=== PATIENT | female | born 1985 | race Caucasian/White ===

== ENCOUNTER 2017-10-15 22:43 | Emergency (ER) | payer MEDICAID ==
[~2017-10-15] VITALS: Ht 149.9 cm; Wt 63.5 kg
[2017-10-16] MEDS ORDERED: IBUP400 PO (00:25)
== END 2017-10-16 00:34 | disposition home or self-care (01) ==
LOC: ER 22:43
DX: M25.532 Pain in left wrist (principal); F17.210 Nicotine dependence, cigarettes, uncomplicated
CPT/HCPCS: 29125; 73110; 99283

== ENCOUNTER 2018-05-30 13:10 | Emergency (ER) | payer OTHER ==
[~2018-05-30] VITALS: Ht 149.9 cm; Wt 63.5 kg
[~2018-05-30 13:10] MED LIST: IBUP400 PO
[2018-05-30] MEDS ORDERED: Cleocin HCl300 MG PO (14:19)
== END 2018-05-30 14:24 | disposition home or self-care (01) ==
LOC: ER 13:10
DX: J02.9 Acute pharyngitis, unspecified (principal); L03.113 Cellulitis of right upper limb; L23.7 Allergic contact dermatitis due to plants, except food; R03.0 Elevated blood-pressure reading, without diagnosis of hypertension; F17.210 Nicotine dependence, cigarettes, uncomplicated
CPT/HCPCS: 99282

== ENCOUNTER 2021-03-03 21:30 | Inpatient (IN) | payer OTHER ==
[~2021-03-03] VITALS: Ht 149.9 cm; Wt 91.9 kg
[~2021-03-03 21:30] MED LIST changes: +Cleocin HCl300 MG PO
[2021-03-03 23:42] LABS: BASOPHILS ABSOLUTE AUTO 0.05 K/mm3 (0.00-0.23); BASOPHILS PERCENT AUTO 0 % (0-2); EOSINOPHILS ABSOLUTE AUTO 0.06 K/mm3 (0.00-0.68); EOSINOPHILS PERCENT AUTO 1 % (0-6); Hematocrit 44.1 % (33.0-51.0); Hemoglobin 14.6 g/dL (11.5-16.0); IMMATURE GRAN ABSOLUTE AUTO 0.05 K/mm3 (0.00-0.10); IMMATURE GRAN PERCENT AUTO 0 % (0-1); LYMPHOCYTES ABSOLUTE AUTO 1.46 K/mm3 (0.84-5.20); LYMPHOCYTES PERCENT AUTO 12 % (21-46); MONOCYTES ABSOLUTE AUTO 1.02 K/mm3 (0.16-1.47); MONOCYTES PERCENT AUTO 8 % (4-13); Mean Corpuscular HGB 29.1 pg (26.0-34.0); Mean Corpuscular HGB Conc 33.1 g/dL (31.5-36.5); Mean Corpuscular Volume 88 fL (80-100); Mean Platelet Volume 8.9 fL (9.1-12.4); NEUTROPHILS ABSOLUTE AUTO 9.94 K/mm3 (1.96-9.15); NEUTROPHILS PERCENT AUTO 79 % (41-73); Platelet Count 359 K/mm3 (150-400); RDW Coefficient Variation 13.4 % (11.7-14.2); RDW Standard Deviation 43.4 fL (35.1-46.3); Red Blood Cell Count 5.02 M/mm3 (3.80-5.20); White Blood Cell Count 12.58 K/mm3 (4.00-11.30)
[2021-03-04 00:05] LABS: Alanine Aminotransfer (ALT/SGP 45 U/L (12-78); Albumin, Blood 2.4 g/dL (3.4-5.0); Albumin/Globulin Ratio 0.5 (0.8-1.8); Alk Phos 90 U/L (50-136); Anion Gap 4 mmol/L (6-16); Aspartate Aminotrans (AST/SGOT 32 U/L (12-37); Bilirubin, Total 0.7 mg/dL (0.1-1.0); Blood Urea Nitrogen 13 mg/dL (8-24); Bun/Creatinine Ratio 17.1 (12.0-20.0); CO2, Blood 27 mmol/L (21-32); Calcium, Blood 8.4 mg/dL (8.5-10.1); Chloride, Blood 105 mmol/L (98-108); Creatinine, Blood 0.76 mg/dL (0.40-1.00); Globulin, Blood 4.4 g/dL (2.2-4.0); Glomerular Filtration Rate >60 (60-); Glucose, Blood 116 mg/dL (70-99); Magnesium, Blood 2.2 mg/dL (1.6-2.4); Potassium, Blood 4.4 mmol/L (3.5-5.5); Sodium, Blood 136 mmol/L (136-145); Total Protein, Blood 6.8 g/dL (6.4-8.2)
[2021-03-04 00:26] LABS: Source, Urine Clean Catch
[2021-03-04 00:30] LABS: Bilirubin, Urine Neg (Neg); Blood, Urine 1+ (Neg); Glucose Qualitative, Urine Neg (Neg); Ketones, Urine Neg (Neg); Leukocyte Esterase, Urine Neg (Neg); Nitrite, Urine Neg (Neg); Protein, Urine 2+ (Neg); Urobilinogen, Urine NORM (Normal); pH, Urine 6.5 (5.0-8.0)
[2021-03-04 00:38] LABS: Appearance, Urine Clear (Clear); Bacteria Not Seen /hpf; Color, Urine Yellow (P-Yellow); Red Blood Cells, Urine 0-2 /hpf (0-2); Squamous Epithelial Cells Not Seen /hpf (Few); White Blood Cells, Urine Not Seen /hpf (0-5)
[2021-03-04 00:41] LABS: U Amphetamine Screen Not Detected; U Barbituate Screen Not Detected; U Benzodiazapine Screen Not Detected; U Buprenorphine Screen Not Detected; U Cannabinoids Screen Not Detected; U Cocaine Screen Not Detected; U Methadone Screen Not Detected; U Methamphetamine Screen DETECTED; U Opiates Screen Not Detected; U Oxycodone Screen Not Detected; U Phencyclidine Screen Not Detected; U Propoxyphene Screen Not Detected
[2021-03-04 00:54] LABS: Troponin I 0.041 ng/mL (0.000-0.040)
[2021-03-04 04:38] LABS: SARS-Cov-2 (COVID-19) PCR, MMC NEGATIVE (NEGATIVE)
--- NOTE | 2021-03-04 06:26 | NUR ---
PATIENT WAS A NEW ADMT FROM ED. PT ARRIVED TO UNIT IN A STABLE CONDITION. ORIENTED PT TO ROOM AND CALL LIGHT USE AND POC. PT VERBALIZED UNDERSTANDING. PT IS CURRENTLY ASLEEP LYING IN BED, RR EVEN AND UNLABORED. BED IN LOW POSITION AND CALL LIGHT WIITHIN REACH.
--- NOTE | 2021-03-04 11:16 | NUR ---
PT ALERT ORIENTED X 4,PT ASK TO LEAVE,RN EXPLAINED THE RISK AD BENEFITS OF LEAVING AMA,PT VERBALIZED UNDERSTANDING AND PT SIGN THE AMA FORM,RN NOTIFIED
[2021-03-04] MEDS ORDERED: LOSA25 PO (12:00)
[2021-03-04] MEDS ORDERED: METO25ER PO (12:01)
[2021-03-04] MEDS ORDERED: FURO20 PO (12:01)
[2021-03-04] MEDS ORDERED: XARELTO20 MG PO (12:01)
[2021-03-04] MEDS ORDERED: SPIR25 PO (12:02)
--- NOTE | 2021-03-04 12:23 | NUR ---
Echocardiogram completed.
== END 2021-03-04 12:37 | disposition left against medical advice (07) | DRG 871 ==
LOC: ER 21:30 → MEDS 03-04 03:28
PROVIDERS: Emergency Medicine; Physician Assistant; ADMIT Internal Medicine
DX: A41.9 Sepsis, unspecified organism (principal); J96.01 Acute respiratory failure with hypoxia; I21.A1 Myocardial infarction type 2; J18.9 Pneumonia, unspecified organism; I50.23 Acute on chronic systolic (congestive) heart failure; J91.8 Pleural effusion in other conditions classified elsewhere; I42.9 Cardiomyopathy, unspecified; Z20.822 Contact with and (suspected) exposure to COVID-19; F17.210 Nicotine dependence, cigarettes, uncomplicated; F41.9 Anxiety disorder, unspecified; E66.9 Obesity, unspecified; F15.10 Other stimulant abuse, uncomplicated; J45.909 Unspecified asthma, uncomplicated; Z68.33 Body mass index [BMI] 33.0-33.9, adult; Z98.51 Tubal ligation status; Z98.890 Other specified postprocedural states; Z88.8 Allergy status to other drugs, medicaments and biological substances
CPT/HCPCS: 36415; 71045; 74177; 80053; 81001; 83605; 83690; 83735; 83880; 84145; 84484; 85025; 85651; 86141; 87040; 93306; 94760; 96374; 96375; 99285-25; J0456; J0696; J1650; J1940; J2405; J3010; J3370; J7030; J7050; Q9957; Q9967; U0004

== ENCOUNTER 2021-05-12 18:17 | Emergency (ER) | payer OTHER ==
[~2021-05-12] VITALS: Ht 149.9 cm; Wt 72.6 kg
[~2021-05-12 18:17] MED LIST changes: +FURO20 PO; +LOSA25 PO; +METO25ER PO; +SPIR25 PO; +XARELTO20 MG PO
[2021-05-12 19:28] LABS: Alanine Aminotransfer (ALT/SGP 54 U/L (12-78); Albumin, Blood 3.1 g/dL (3.4-5.0); Albumin/Globulin Ratio 0.7 (0.8-1.8); Alk Phos 117 U/L (50-136); Anion Gap 7 mmol/L (6-16); Aspartate Aminotrans (AST/SGOT 34 U/L (12-37); Bilirubin, Total 1.1 mg/dL (0.1-1.0); Blood Urea Nitrogen 17 mg/dL (8-24); Bun/Creatinine Ratio 19.8 (12.0-20.0); CO2, Blood 26 mmol/L (21-32); Calcium, Blood 9.2 mg/dL (8.5-10.1); Chloride, Blood 105 mmol/L (98-108); Creatinine, Blood 0.86 mg/dL (0.40-1.00); Globulin, Blood 4.6 g/dL (2.2-4.0); Glomerular Filtration Rate >60 (60-); Glucose, Blood 107 mg/dL (70-99); Potassium, Blood 4.1 mmol/L (3.5-5.5); Sodium, Blood 138 mmol/L (136-145); Total Protein, Blood 7.7 g/dL (6.4-8.2)
[2021-05-12 20:59] LABS: BASOPHILS ABSOLUTE AUTO 0.07 K/mm3 (0.00-0.23); BASOPHILS PERCENT AUTO 1 % (0-2); EOSINOPHILS ABSOLUTE AUTO 0.18 K/mm3 (0.00-0.68); EOSINOPHILS PERCENT AUTO 2 % (0-6); Hematocrit 45.5 % (33.0-51.0); Hemoglobin 14.3 g/dL (11.5-16.0); IMMATURE GRAN ABSOLUTE AUTO 0.03 K/mm3 (0.00-0.10); IMMATURE GRAN PERCENT AUTO 0 % (0-1); LYMPHOCYTES ABSOLUTE AUTO 1.51 K/mm3 (0.84-5.20); LYMPHOCYTES PERCENT AUTO 18 % (21-46); MONOCYTES ABSOLUTE AUTO 0.41 K/mm3 (0.16-1.47); MONOCYTES PERCENT AUTO 5 % (4-13); Mean Corpuscular HGB 26.8 pg (26.0-34.0); Mean Corpuscular HGB Conc 31.4 g/dL (31.5-36.5); Mean Corpuscular Volume 85 fL (80-100); Mean Platelet Volume 8.9 fL (9.1-12.4); NEUTROPHILS ABSOLUTE AUTO 6.12 K/mm3 (1.96-9.15); NEUTROPHILS PERCENT AUTO 74 % (41-73); Platelet Count 345 K/mm3 (150-400); RDW Coefficient Variation 17.4 % (11.7-14.2); RDW Standard Deviation 53.8 fL (35.1-46.3); Red Blood Cell Count 5.33 M/mm3 (3.80-5.20); White Blood Cell Count 8.32 K/mm3 (4.00-11.30)
[2021-05-12] MEDS ORDERED: CEPH500 PO ×2 (21:39→21:40)
== END 2021-05-12 22:08 | disposition home or self-care (01) ==
LOC: ER 18:17
PROVIDERS: Physician Assistant
DX: L03.116 Cellulitis of left lower limb (principal); L03.115 Cellulitis of right lower limb; I50.9 Heart failure, unspecified; F17.210 Nicotine dependence, cigarettes, uncomplicated; Z88.8 Allergy status to other drugs, medicaments and biological substances; Z79.899 Other long term (current) drug therapy
CPT/HCPCS: 36415; 80053; 85025; 99283; A9270

== ENCOUNTER 2021-05-25 21:00 | Inpatient (IN) | payer OTHER ==
[~2021-05-25] VITALS: Ht 149.9 cm; Wt 86.4 kg
[~2021-05-25 21:00] MED LIST changes: +CEPH500 PO
[2021-05-25 21:34] LABS: BASOPHILS ABSOLUTE AUTO 0.04 K/mm3 (0.00-0.23); BASOPHILS PERCENT AUTO 1 % (0-2); EOSINOPHILS ABSOLUTE AUTO 0.11 K/mm3 (0.00-0.68); EOSINOPHILS PERCENT AUTO 2 % (0-6); Hematocrit 44.8 % (33.0-51.0); Hemoglobin 14.4 g/dL (11.5-16.0); IMMATURE GRAN ABSOLUTE AUTO 0.03 K/mm3 (0.00-0.10); IMMATURE GRAN PERCENT AUTO 0 % (0-1); LYMPHOCYTES ABSOLUTE AUTO 1.04 K/mm3 (0.84-5.20); LYMPHOCYTES PERCENT AUTO 14 % (21-46); MONOCYTES ABSOLUTE AUTO 0.54 K/mm3 (0.16-1.47); MONOCYTES PERCENT AUTO 7 % (4-13); Mean Corpuscular HGB 26.7 pg (26.0-34.0); Mean Corpuscular HGB Conc 32.1 g/dL (31.5-36.5); Mean Corpuscular Volume 83 fL (80-100); NEUTROPHILS PERCENT AUTO 76 % (41-73); NRBC ABSOLUTE 0.02 K/mm3 (0.00-0.02); NRBC Auto 0.3 /100 WBC (0.0-0.2); Platelet Count 371 K/mm3 (150-400); RDW Coefficient Variation 17.5 % (11.7-14.2); RDW Standard Deviation 52.7 fL (35.1-46.3); White Blood Cell Count 7.36 K/mm3 (4.00-11.30)
[2021-05-25 22:15] LABS: Alanine Aminotransfer (ALT/SGP 154 U/L (12-78); Albumin, Blood 2.9 g/dL (3.4-5.0); Albumin/Globulin Ratio 0.7 (0.8-1.8); Alk Phos 120 U/L (50-136); Anion Gap 7 mmol/L (6-16); Aspartate Aminotrans (AST/SGOT 178 U/L (12-37); Blood Urea Nitrogen 19 mg/dL (8-24); Bun/Creatinine Ratio 22.1 (12.0-20.0); CO2, Blood 30 mmol/L (21-32); Calcium, Blood 8.5 mg/dL (8.5-10.1); Chloride, Blood 98 mmol/L (98-108); Creatinine, Blood 0.86 mg/dL (0.40-1.00); Globulin, Blood 3.9 g/dL (2.2-4.0); Glomerular Filtration Rate >60 (60-); Glucose, Blood 94 mg/dL (70-99); Potassium, Blood 4.3 mmol/L (3.5-5.5); Sodium, Blood 135 mmol/L (136-145); Total Protein, Blood 6.8 g/dL (6.4-8.2); Troponin I <0.015 ng/mL (0.000-0.040)
[2021-05-25 22:50] LABS: Influenza A, PCR NEGATIVE (NEGATIVE); Influenza B, PCR NEGATIVE (NEGATIVE); Resp Syncytial Virus, PCR NEGATIVE (NEGATIVE); SARS-Cov-2 (COVID-19) PCR, MMC NEGATIVE (NEGATIVE)
[2021-05-26 00:02] LABS: Cholesterol 168 mg/dL (50-200); HDL Cholesterol 21 mg/dL (>39); LDL/HDL RATIO 6.5; Low Density Lipoprotein Chol 136 mg/dL (0-110); Triglycerides 57 mg/dL (30-140); Very Low Density Lipoprot Chol 11 mg/dL (6-28)
[2021-05-26 00:09] LABS: U Amphetamine Screen Not Detected; U Barbituate Screen Not Detected; U Benzodiazapine Screen Not Detected; U Buprenorphine Screen Not Detected; U Cannabinoids Screen Not Detected; U Cocaine Screen Not Detected; U Methadone Screen Not Detected; U Methamphetamine Screen Not Detected; U Opiates Screen Not Detected; U Oxycodone Screen Not Detected; U Phencyclidine Screen Not Detected; U Propoxyphene Screen Not Detected
[2021-05-26 02:03] LABS: International Normalized Ratio 1.46
[2021-05-26 04:00] LABS: Alanine Aminotransfer (ALT/SGP 167 U/L (12-78); Albumin/Globulin Ratio 0.7 (0.8-1.8); Alk Phos 125 U/L (50-136); Anion Gap 6 mmol/L (6-16); Aspartate Aminotrans (AST/SGOT 172 U/L (12-37); Bilirubin, Total 0.9 mg/dL (0.1-1.0); Blood Urea Nitrogen 24 mg/dL (8-24); Bun/Creatinine Ratio 24.3 (12.0-20.0); CO2, Blood 33 mmol/L (21-32); Calcium, Blood 8.4 mg/dL (8.5-10.1); Chloride, Blood 98 mmol/L (98-108); Creatinine, Blood 0.99 mg/dL (0.40-1.00); Globulin, Blood 4.5 g/dL (2.2-4.0); Glomerular Filtration Rate >60 (60-); Glucose, Blood 101 mg/dL (70-99); Potassium, Blood 3.3 mmol/L (3.5-5.5); Sodium, Blood 137 mmol/L (136-145); Total Protein, Blood 7.5 g/dL (6.4-8.2)
[2021-05-26 04:13] LABS: BASOPHILS ABSOLUTE AUTO 0.04 K/mm3 (0.00-0.23); BASOPHILS PERCENT AUTO 1 % (0-2); EOSINOPHILS ABSOLUTE AUTO 0.09 K/mm3 (0.00-0.68); EOSINOPHILS PERCENT AUTO 1 % (0-6); Hematocrit 47.6 % (33.0-51.0); Hemoglobin 15.3 g/dL (11.5-16.0); IMMATURE GRAN ABSOLUTE AUTO 0.04 K/mm3 (0.00-0.10); IMMATURE GRAN PERCENT AUTO 1 % (0-1); LYMPHOCYTES ABSOLUTE AUTO 1.12 K/mm3 (0.84-5.20); LYMPHOCYTES PERCENT AUTO 15 % (21-46); MONOCYTES PERCENT AUTO 8 % (4-13); Mean Corpuscular HGB 26.7 pg (26.0-34.0); Mean Corpuscular HGB Conc 32.1 g/dL (31.5-36.5); Mean Corpuscular Volume 83 fL (80-100); Mean Platelet Volume 9.3 fL (9.1-12.4); NEUTROPHILS ABSOLUTE AUTO 5.58 K/mm3 (1.96-9.15); NEUTROPHILS PERCENT AUTO 75 % (41-73); Platelet Count 390 K/mm3 (150-400); RDW Coefficient Variation 18.4 % (11.7-14.2); RDW Standard Deviation 52.7 fL (35.1-46.3); Red Blood Cell Count 5.73 M/mm3 (3.80-5.20); White Blood Cell Count 7.47 K/mm3 (4.00-11.30)
--- NOTE | 2021-05-26 15:03 | NUR ---
REPORT RECEIVED FROM SCOTT HANNON IN ER. PT TOA TO [phone]. PT A/O X 4, IND. PT REPORTS DULL ACHE TO CHEST, SHE ALSO HAS WHEEZING TO RLL. RR E/U. PT HAS REDNESS FROM THIGHS TO FEET WITH MULTIPLE BLACK SPOTS TO LOWER EXT.
--- NOTE | 2021-05-26 19:04 | NUR ---
SHIFT SUMMARY: PT A/O X 4 IND IN ROOM. IV ANTIBIOTICS RUNNING AT SHIFT END. PT HAD NO FURTHER C/O CHEST PAIN. PHOTOS OF SORE TO BOTH EXTREMITIES TAKEN AND DOCUMENTED, PLACED IN CHART.
[2021-05-27 04:30] LABS: BASOPHILS ABSOLUTE AUTO 0.04 K/mm3 (0.00-0.23); BASOPHILS PERCENT AUTO 1 % (0-2); EOSINOPHILS ABSOLUTE AUTO 0.16 K/mm3 (0.00-0.68); EOSINOPHILS PERCENT AUTO 3 % (0-6); Hemoglobin 14.9 g/dL (11.5-16.0); IMMATURE GRAN ABSOLUTE AUTO 0.02 K/mm3 (0.00-0.10); IMMATURE GRAN PERCENT AUTO 0 % (0-1); LYMPHOCYTES ABSOLUTE AUTO 0.81 K/mm3 (0.84-5.20); LYMPHOCYTES PERCENT AUTO 13 % (21-46); MONOCYTES ABSOLUTE AUTO 0.68 K/mm3 (0.16-1.47); MONOCYTES PERCENT AUTO 11 % (4-13); Mean Corpuscular HGB 26.7 pg (26.0-34.0); Mean Corpuscular HGB Conc 31.7 g/dL (31.5-36.5); Mean Corpuscular Volume 84 fL (80-100); NEUTROPHILS ABSOLUTE AUTO 4.72 K/mm3 (1.96-9.15); NEUTROPHILS PERCENT AUTO 73 % (41-73); Platelet Count 343 K/mm3 (150-400); RDW Coefficient Variation 18.1 % (11.7-14.2); RDW Standard Deviation 54.1 fL (35.1-46.3); Red Blood Cell Count 5.58 M/mm3 (3.80-5.20); White Blood Cell Count 6.43 K/mm3 (4.00-11.30)
[2021-05-27 05:13] LABS: Anion Gap 6 mmol/L (6-16); Blood Urea Nitrogen 21 mg/dL (8-24); Bun/Creatinine Ratio 25.9 (12.0-20.0); CO2, Blood 33 mmol/L (21-32); Calcium, Blood 9.1 mg/dL (8.5-10.1); Chloride, Blood 100 mmol/L (98-108); Creatinine, Blood 0.81 mg/dL (0.40-1.00); Glomerular Filtration Rate >60 (60-); Glucose, Blood 90 mg/dL (70-99); Potassium, Blood 4.1 mmol/L (3.5-5.5); Sodium, Blood 139 mmol/L (136-145)
--- NOTE | 2021-05-27 05:30 | NUR ---
PATIENT WAS ALERT AND ORIENTED X4, STABLE VITAL SIGNS, NO ACUTE CHANGES. PATIENT DENIED ANY PAIN. PATIENT SLEPT FOR MOST FO THE NIGHT. SCHEDULED MEDICATION WAS GIVEN AND TOLERANTED WELL. CALL LIGHT WITHIN REACH AND BED DOWN TO THE LOWEST POSITION. WILL CONTINUE TO MONITOR UNTILL HAND OFF.
--- NOTE | 2021-05-27 17:58 | NUR ---
SHIFT NOÉ PT HAS SPENT MOST OF THE DAY LSLEEPING. SHE IS TOLERATING HER ABX AND WAS ANXIOUS TO LEAVE TODAY, BUT SPOKE WITH THE DR AND HE TALKED HER OUT OF LEAVING AMA. SHE DENIES CHEST PAIN AND HAS BEEN NSR IN THE 70'S ON TELE FOR MOST OF THE DAY. THE PLAN IS TO DISCHARGE HER TOMORROW . WILL CONTINUE TO MONITOR.
[2021-05-28 05:12] LABS: BASOPHILS ABSOLUTE AUTO 0.04 K/mm3 (0.00-0.23); BASOPHILS PERCENT AUTO 1 % (0-2); EOSINOPHILS ABSOLUTE AUTO 0.14 K/mm3 (0.00-0.68); EOSINOPHILS PERCENT AUTO 2 % (0-6); Hematocrit 51.2 % (33.0-51.0); IMMATURE GRAN ABSOLUTE AUTO 0.05 K/mm3 (0.00-0.10); IMMATURE GRAN PERCENT AUTO 1 % (0-1); LYMPHOCYTES ABSOLUTE AUTO 1.24 K/mm3 (0.84-5.20); LYMPHOCYTES PERCENT AUTO 16 % (21-46); MONOCYTES ABSOLUTE AUTO 0.62 K/mm3 (0.16-1.47); MONOCYTES PERCENT AUTO 8 % (4-13); Mean Corpuscular HGB 26.5 pg (26.0-34.0); Mean Corpuscular HGB Conc 31.3 g/dL (31.5-36.5); Mean Corpuscular Volume 85 fL (80-100); Mean Platelet Volume 9.2 fL (9.1-12.4); NEUTROPHILS ABSOLUTE AUTO 5.55 K/mm3 (1.96-9.15); NEUTROPHILS PERCENT AUTO 73 % (41-73); Platelet Count 363 K/mm3 (150-400); RDW Coefficient Variation 18.5 % (11.7-14.2); RDW Standard Deviation 54.5 fL (35.1-46.3); Red Blood Cell Count 6.04 M/mm3 (3.80-5.20); White Blood Cell Count 7.64 K/mm3 (4.00-11.30)
[2021-05-28 05:41] LABS: Anion Gap 10 mmol/L (6-16); Blood Urea Nitrogen 23 mg/dL (8-24); Bun/Creatinine Ratio 26.6 (12.0-20.0); CO2, Blood 29 mmol/L (21-32); Calcium, Blood 8.7 mg/dL (8.5-10.1); Chloride, Blood 98 mmol/L (98-108); Creatinine, Blood 0.87 mg/dL (0.40-1.00); Glomerular Filtration Rate >60 (60-); Glucose, Blood 171 mg/dL (70-99); Magnesium, Blood 1.9 mg/dL (1.6-2.4); Potassium, Blood 3.8 mmol/L (3.5-5.5); Sodium, Blood 137 mmol/L (136-145)
--- NOTE | 2021-05-28 07:19 | NUR ---
SHIFT SUMMARY PATIENT ALERT AND ORIENTED. MEDICATED PER EMAR FOR PAIN. NO COMPLAINTS OF CHEST PAIN OR SHORTNESS OF BREATH. NO ACUTE ISSUES NOTED OVERNIGHT. CALL LIGHT WITHIN REACH. REPORT GIVEN TO ONCOMING RN.
[2021-05-28] MEDS ORDERED: FURO40 PO (11:22)
[2021-05-28] MEDS ORDERED: Carvedilol12.5 MG PO (11:23)
[2021-05-28] MEDS ORDERED: XARELTO20 MG PO (11:25)
[2021-05-28] MEDS ORDERED: ENTRESTO 49 MG1 EACH PO (11:25)
--- NOTE | 2021-05-28 14:14 | NUR ---
DISCHARGE SUMMARY PATIENT IS ALERT AND ORIENTED X4. PATIENT HAS BEEN PLEASENT AND COOPERATIVE WITH CARE. PATIENT WAS GOING TO LEAVE AMA, BUT DR PUT IN DISCHARGE ORDERS. PATIENT WAS READ AND VERBALLY UNDERSTOOD DISCHARGE INSTRUCTIONS. MEDICATIONS WERE FAXED TO PHARMACY THAT PATIENT VERBALLIZED. NO ACUTE EVENTS THIS SHIFT. VITAL SIGNS REVIEWED. PATIENT WALKED DOWN WITH AMINATA SPENCER TO AWAITING FAMILYS CAR.
== END 2021-05-28 14:02 | disposition home or self-care (01) | DRG 292 ==
LOC: ER 21:00 → ERHOLD 05-26 00:14 → MEDS 05-26 14:54
PROVIDERS: Internal Medicine; Physician Assistant; Student in an Organized Health Care Education/Training Program; ADMIT Family Medicine
DX: I50.23 Acute on chronic systolic (congestive) heart failure (principal); I42.8 Other cardiomyopathies; E87.1 Hypo-osmolality and hyponatremia; Z20.822 Contact with and (suspected) exposure to COVID-19; K74.60 Unspecified cirrhosis of liver; E88.09 Other disorders of plasma-protein metabolism, not elsewhere classified; Z68.29 Body mass index [BMI] 29.0-29.9, adult; E66.01 Morbid (severe) obesity due to excess calories; F15.10 Other stimulant abuse, uncomplicated; I27.20 Pulmonary hypertension, unspecified; I08.1 Rheumatic disorders of both mitral and tricuspid valves; F17.210 Nicotine dependence, cigarettes, uncomplicated; Z79.01 Long term (current) use of anticoagulants; Z79.899 Other long term (current) drug therapy; Z88.8 Allergy status to other drugs, medicaments and biological substances; Z98.890 Other specified postprocedural states; Z98.51 Tubal ligation status
CPT/HCPCS: 0241U; 36415; 71046; 76705; 78451; 80048; 80053; 80061; 83690; 83735; 83880; 84145; 84484; 85025; 85520; 85610; 93005; 93010; 93925; 93970; 94760; 99285-25; A9270; A9500; C8929; J0690; J1644; J1650; J1940; J1956; J7050; Q9957

== ENCOUNTER → 2022-11-01 | Outpatient (CLI) | payer OTHER ==
[~2022-11-01] MED LIST changes: +Carvedilol12.5 MG PO; +ENTRESTO 49 MG1 EACH PO; +FURO40 PO
[2022-11-01 17:47] LABS: BASOPHILS ABSOLUTE AUTO 0.05 K/mm3 (0.00-0.23); BASOPHILS PERCENT AUTO 1 % (0-2); EOSINOPHILS ABSOLUTE AUTO 0.05 K/mm3 (0.00-0.68); EOSINOPHILS PERCENT AUTO 1 % (0-6); Hematocrit 44.1 % (33.0-51.0); Hemoglobin 14.5 g/dL (11.5-16.0); IMMATURE GRAN ABSOLUTE AUTO 0.03 K/mm3 (0.00-0.10); IMMATURE GRAN PERCENT AUTO 0 % (0-1); LYMPHOCYTES PERCENT AUTO 21 % (21-46); MONOCYTES ABSOLUTE AUTO 0.49 K/mm3 (0.16-1.47); MONOCYTES PERCENT AUTO 6 % (4-13); Mean Corpuscular HGB 28.6 pg (26.0-34.0); Mean Corpuscular HGB Conc 32.9 g/dL (31.5-36.5); Mean Corpuscular Volume 87 fL (80-100); Mean Platelet Volume 9.7 fL (9.1-12.4); NEUTROPHILS ABSOLUTE AUTO 5.99 K/mm3 (1.96-9.15); NEUTROPHILS PERCENT AUTO 72 % (41-73); Platelet Count 290 K/mm3 (150-400); RDW Coefficient Variation 15.9 % (11.7-14.2); RDW Standard Deviation 48.8 fL (35.1-46.3); Red Blood Cell Count 5.07 M/mm3 (3.80-5.20); White Blood Cell Count 8.31 K/mm3 (4.00-11.30)
[2022-11-01 17:50] LABS: Bun/Creatinine Ratio 25.6 (12.0-20.0); Calcium, Blood 9.3 mg/dL (8.5-10.1); Creatinine, Blood 1.25 mg/dL (0.40-1.00); Potassium, Blood 3.5 mmol/L (3.5-5.5)
== END ==
LOC: LAB SHORT 17:39 → LAB 17:39
PROVIDERS: Physician Assistant Medical
DX: R07.9 Chest pain, unspecified (principal)
CPT/HCPCS: 80048; 84484; 85025

== ENCOUNTER 2023-03-02 00:22 | Inpatient (IN) | payer OTHER ==
[2023-03-02] VITALS (11 sets, daily range): BP systolic 128–154; BP diastolic 77–111
[~2023-03-02] VITALS: Ht 149.9 cm; Wt 92.9 kg
[2023-03-02 01:08] LABS: BASOPHILS ABSOLUTE AUTO 0.03 K/mm3 (0.00-0.23); BASOPHILS PERCENT AUTO 0 % (0-2); EOSINOPHILS ABSOLUTE AUTO 0.09 K/mm3 (0.00-0.68); EOSINOPHILS PERCENT AUTO 1 % (0-6); Hematocrit 41.7 % (33.0-51.0); Hemoglobin 13.7 g/dL (11.5-16.0); IMMATURE GRAN ABSOLUTE AUTO 0.03 K/mm3 (0.00-0.10); IMMATURE GRAN PERCENT AUTO 0 % (0-1); LYMPHOCYTES ABSOLUTE AUTO 1.31 K/mm3 (0.84-5.20); LYMPHOCYTES PERCENT AUTO 17 % (21-46); MONOCYTES ABSOLUTE AUTO 0.48 K/mm3 (0.16-1.47); MONOCYTES PERCENT AUTO 6 % (4-13); Mean Corpuscular HGB 29.1 pg (26.0-34.0); Mean Corpuscular HGB Conc 32.9 g/dL (31.5-36.5); Mean Corpuscular Volume 89 fL (80-100); Mean Platelet Volume 9.7 fL (9.1-12.4); NEUTROPHILS ABSOLUTE AUTO 5.71 K/mm3 (1.96-9.15); NEUTROPHILS PERCENT AUTO 75 % (41-73); Platelet Count 270 K/mm3 (150-400); RDW Coefficient Variation 15.9 % (11.7-14.2); RDW Standard Deviation 51.1 fL (35.1-46.3); Red Blood Cell Count 4.71 M/mm3 (3.80-5.20); White Blood Cell Count 7.65 K/mm3 (4.00-11.30)
[2023-03-02 01:21] LABS: Albumin, Blood 2.9 g/dL (3.4-5.0); Albumin/Globulin Ratio 0.8 (0.8-1.8); Bilirubin, Total 1.8 mg/dL (0.1-1.0); Bun/Creatinine Ratio 17.8 (12.0-20.0); Calcium, Blood 8.1 mg/dL (8.5-10.1); Creatinine, Blood 0.67 mg/dL (0.40-1.00); Globulin, Blood 3.5 g/dL (2.2-4.0); Potassium, Blood 4.3 mmol/L (3.5-5.5); Total Protein, Blood 6.4 g/dL (6.4-8.2)
[2023-03-02 01:53] LABS: Source, Urine Clean Catch
[2023-03-02 02:08] LABS: Bilirubin, Urine Neg (Neg); Blood, Urine 4+ (Neg); Glucose Qualitative, Urine Neg (Neg); Ketones, Urine Neg (Neg); Leukocyte Esterase, Urine Neg (Neg); Nitrite, Urine Neg (Neg); Protein, Urine 2+ (Neg); Urobilinogen, Urine NORM (Normal); pH, Urine 6.5 (5.0-8.0)
[2023-03-02 02:12] LABS: Influenza A, PCR NEGATIVE (NEGATIVE); Influenza B, PCR NEGATIVE (NEGATIVE); Resp Syncytial Virus, PCR NEGATIVE (NEGATIVE); SARS-Cov-2 (COVID-19) PCR, MMC NEGATIVE (NEGATIVE)
[2023-03-02 02:12] LABS: D-Dimer, Quantitative 1.26 mg/L FEU (0.00-0.52); International Normalized Ratio 1.38; Prothrombin Time Results 14.2 Sec (9.7-11.5)
[2023-03-02 02:14] LABS: Beta HCG, Quantitative, Serum <1 mIU/mL (0-3); Magnesium, Blood 1.8 mg/dL (1.6-2.4); Phosphorus, Blood 3.1 mg/dL (2.5-4.9)
[2023-03-02 02:15] LABS: Appearance, Urine Clear (Clear); Color, Urine Yellow (P-Yellow)
[2023-03-02 02:16] LABS: Bacteria Rare /hpf; Red Blood Cells, Urine 0-2 /hpf (0-2); Squamous Epithelial Cells Few /hpf (Few); White Blood Cells, Urine 0-2 /hpf (0-5)
[2023-03-02] MEDS ORDERED: CARV25 PO (02:32)
[2023-03-02] MEDS ORDERED: Prinivil10 MG PO (02:32)
[2023-03-02] MEDS ORDERED: SOAANZ20 M1 (02:33)
[2023-03-02 05:14] LABS: Anti-Xa UFH, PHA Monitoring <0.10 IU/mL
--- NOTE | 2023-03-02 06:23 | NUR ---
PATIENT AOX4. ANXIOUS AND TEARFUL. SR WITH STABLE BP. ROOM AIR. PUREWICK IN PLACE DUE TO FREQUENCY AND URGENCY AFTER LASIX. TOLERATING DIET. HEPARIN GTT INITIATED.
--- NOTE | 2023-03-02 07:00 | NUR ---
ASSUMPTION OF CARE PT RECEIVING HEPARIN 18UNITS/KG/HR. PT IS A&OX3. REPORTS FEELING TIRED. SINUS RHYTHM WITH LBBB, RATE IN 70S. PT HYPERTENSIVE WITH SBP 140S-150S, DBP >100. PUREWICK IN PLACE WITH PALE YELLOW OUTPUT. PT'S FIANCE SLEEPING IN RECLINER. BED IN LOW POSITION WITH CALL LIGHT IN REACH.
[2023-03-02 13:07] LABS: BASOPHILS ABSOLUTE AUTO 0.05 K/mm3 (0.00-0.23); BASOPHILS PERCENT AUTO 1 % (0-2); EOSINOPHILS ABSOLUTE AUTO 0.14 K/mm3 (0.00-0.68); EOSINOPHILS PERCENT AUTO 2 % (0-6); Hematocrit 43.6 % (33.0-51.0); Hemoglobin 14.9 g/dL (11.5-16.0); IMMATURE GRAN ABSOLUTE AUTO 0.02 K/mm3 (0.00-0.10); IMMATURE GRAN PERCENT AUTO 0 % (0-1); LYMPHOCYTES ABSOLUTE AUTO 1.67 K/mm3 (0.84-5.20); LYMPHOCYTES PERCENT AUTO 20 % (21-46); MONOCYTES ABSOLUTE AUTO 0.58 K/mm3 (0.16-1.47); MONOCYTES PERCENT AUTO 7 % (4-13); Mean Corpuscular HGB 29.9 pg (26.0-34.0); Mean Corpuscular HGB Conc 34.2 g/dL (31.5-36.5); Mean Corpuscular Volume 87 fL (80-100); Mean Platelet Volume 9.9 fL (9.1-12.4); NEUTROPHILS ABSOLUTE AUTO 5.93 K/mm3 (1.96-9.15); NEUTROPHILS PERCENT AUTO 71 % (41-73); Platelet Count 285 K/mm3 (150-400); Red Blood Cell Count 4.99 M/mm3 (3.80-5.20); White Blood Cell Count 8.39 K/mm3 (4.00-11.30)
[2023-03-02 13:25] LABS: Albumin/Globulin Ratio 0.8 (0.8-1.8); Bilirubin, Total 1.4 mg/dL (0.1-1.0); Bun/Creatinine Ratio 18.5 (12.0-20.0); Calcium, Blood 8.5 mg/dL (8.5-10.1); Creatinine, Blood 0.81 mg/dL (0.40-1.00); Globulin, Blood 3.9 g/dL (2.2-4.0); Potassium, Blood 3.8 mmol/L (3.5-5.5); Total Protein, Blood 6.9 g/dL (6.4-8.2)
--- NOTE | 2023-03-02 13:54 | NUR ---
UPDATE PT RECEIVING HEPARIN 18UNITS/KG/HR. PT IS ALERT AND ORIENTED, TEARFUL AT TIMES. SHE DID HAVE ONE EPISODE OF 8/10 CHEST PAIN. SHE DESCRIBED THIS A PAIN THAT SHE HAS PREVIOUSLY HAD AT HOME. PAIN INCREASES WITH SUBSTERNAL PALPATION. FINNISH RUBBER AT BEDSIDE DURING THIS TIME. NO RHYTHM CHANGE ON MONITOR, BP STABLE. TROPONIN AND LABS PENDING. PT REPORTS CHEST PAIN SUBSIDING WITHIN APPROX 15MIN. PUREWICK IN PLACE.
--- NOTE | 2023-03-02 17:18 | NUR ---
UPDATE PT HAS PRODUCTIVE COUGH. SPUTUM IS WHITE/CLEAR WITH PINK/RED STREAKS. PT HAS HAD SMALL EPISODES OF INTERMITTENT CHEST PAIN THAT WORSEN WITH DEEP BREATHES AND PALPATION. PT REPORTS SHE HAS BEEN FEELING THIS WAY AT HOME. THIS AFTERNOON SHE HAS FELT SOB AND REPORTS USING AN INHALER AT HOME. [employer] PROVIDER UPDATED AND ROUNDED THIS AFTERNOON. ORDER RECEIVED FOR INHALER AND PT REPORTS RELIEF. PT TEARFUL AT TIMES. PT STS SHE AND HER BOYFRIEND RONAK HAVE BEEN STRUGGLING BETWEEN HER DECLINING HEALTH, LIVING SITUATION AND RECENT OF HER SON. SHE REPORTS HAVING TWO OTHER SONS. 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 SHE HAS BEEN PROVIDED FORMS BUT NEEDS ASSISTANCE WITH THE PROCESS.
--- NOTE | 2023-03-02 17:39 | NUR ---
Brief visit made with pt today. She is grieving her son, who she states was 18 yrs old and committed suicide in her home last month on Jan 23. She also states she is being evicted from her home, and just found out she has cardiomyopathy and an EF of 20%. She asked for resources for fighting the eviction, I mentioned Solution [employer], but will send a message to SURFACE GRINDER regarding this pt.
--- NOTE | 2023-03-02 18:10 | NUR ---
TRANSFER PT TRANSFERRED TO PCU 15 VIA WHEELCHAIR WITH ALL BELONGINGS. PT STS SHE WILL UPDATE RONAK ON ROOM CHANGE.
--- NOTE | 2023-03-02 19:02 | NUR ---
PCU ARRIVAL PT BROUGHT TO PCU-15 BY WHEELCHAIR FROM ICU @ APPROX 1800. PT A&O X4, ABLE TO AMBULATE FROM WC TO PCU BED W/ SBA. SPO2 > 92% ON RA. MONITOR SHOWING SR, HR 70s. PUREWICK PLACED, DRAINING CLEAR LIGHT YELLOW URINE. PT TEARFUL AT TIMES, SHARING ABOUT RECENT LOSS OF HER SON TO SUICIDE LAST MONTH. PT THEN SPEAKING POSITIVELY, TOUCHING ON MEMORIES THAT THEN CAUSE HER TO LAUGH & SMILE SHE REMEMBERS HER SON. PT S/O NOW AT BEDSIDE W/ PT.
[2023-03-03] VITALS (9 sets, daily range): BP systolic 90–142; BP diastolic 59–91
[2023-03-03 03:42] LABS: BASOPHILS ABSOLUTE AUTO 0.06 K/mm3 (0.00-0.23); BASOPHILS PERCENT AUTO 1 % (0-2); EOSINOPHILS ABSOLUTE AUTO 0.17 K/mm3 (0.00-0.68); EOSINOPHILS PERCENT AUTO 2 % (0-6); Hematocrit 43.8 % (33.0-51.0); Hemoglobin 14.8 g/dL (11.5-16.0); IMMATURE GRAN ABSOLUTE AUTO 0.04 K/mm3 (0.00-0.10); IMMATURE GRAN PERCENT AUTO 0 % (0-1); LYMPHOCYTES ABSOLUTE AUTO 1.38 K/mm3 (0.84-5.20); LYMPHOCYTES PERCENT AUTO 15 % (21-46); MONOCYTES ABSOLUTE AUTO 0.78 K/mm3 (0.16-1.47); MONOCYTES PERCENT AUTO 9 % (4-13); Mean Corpuscular HGB 29.8 pg (26.0-34.0); Mean Corpuscular HGB Conc 33.8 g/dL (31.5-36.5); Mean Corpuscular Volume 88 fL (80-100); Mean Platelet Volume 9.4 fL (9.1-12.4); NEUTROPHILS ABSOLUTE AUTO 6.68 K/mm3 (1.96-9.15); NEUTROPHILS PERCENT AUTO 73 % (41-73); Platelet Count 275 K/mm3 (150-400); RDW Coefficient Variation 15.5 % (11.7-14.2); RDW Standard Deviation 49.6 fL (35.1-46.3); Red Blood Cell Count 4.97 M/mm3 (3.80-5.20); White Blood Cell Count 9.11 K/mm3 (4.00-11.30)
[2023-03-03 04:02] LABS: Albumin, Blood 2.7 g/dL (3.4-5.0); Albumin/Globulin Ratio 0.8 (0.8-1.8); Bilirubin, Total 0.8 mg/dL (0.1-1.0); Bun/Creatinine Ratio 21.8 (12.0-20.0); Calcium, Blood 8.2 mg/dL (8.5-10.1); Creatinine, Blood 0.92 mg/dL (0.40-1.00); Globulin, Blood 3.6 g/dL (2.2-4.0); Potassium, Blood 3.4 mmol/L (3.5-5.5); Total Protein, Blood 6.3 g/dL (6.4-8.2)
--- NOTE | 2023-03-03 06:35 | NUR ---
SHIFT SUMMARY PATIENT ALERT AND ORIENTED X4, STAND BY ASSIST TO THE RESTROOM. HAD NO COMPLAINTS OF PAIN OR SHORTNESS OF BREATH. ON ROOM AIR WHILE AWAKE, ENCOURAGED TO WEAR CPAP FOR SLEEP. VITAL SIGNS STABLE, SINUS RHYTHM ON TELE. CONTINUES ON HEPARIN DRIP. NO ACUTE ISSUES NOTED OVERNIGHT. WILL CONTINUE TO MONITOR. CALL LIGHT WITHIN REACH.
[2023-03-03 10:56] LABS: U Amphetamine Screen Not Detected; U Barbituate Screen Not Detected; U Benzodiazapine Screen Not Detected; U Buprenorphine Screen Not Detected; U Cannabinoids Screen Not Detected; U Cocaine Screen Not Detected; U Methadone Screen Not Detected; U Methamphetamine Screen Not Detected; U Opiates Screen Not Detected; U Oxycodone Screen Not Detected; U Phencyclidine Screen Not Detected; U Propoxyphene Screen Not Detected
--- NOTE | 2023-03-03 11:15 | NUR ---
ASSUMPTION OF CARE THIS RN ASSUMED CARE AT APPROX 0700. PT AOX4. CAN BE ANXIOUS AND TEARFUL AT TIMES. COOPERATIVE WITH CARE. SIGNIFICANT OTHER PRESENT AT BEDSIDE, DOES SMOKE CIGARETTES AND HAS TRUCK DRIVER ON PERSON. THIS RN PROVIDED EDUCATION REGARDING SMOKE-FREE CAMPUS. BOTH PT AND SIGNIFICANT OTHER ARE RECEPTIVE TO EDUCATION, VERBALIZES UNDERSTANDING AND DEMONSTRATING COMPLIANCE WITH RESPONSIBLE USE OF IGNITION SOURCE. SIGNIFICANT OTHER REPORTED THAT HE GOES OFF CAMPUS TO SMOKE. VSS. TELEMETRY SHOWING SR BBB, RATE 70'S. BP STABLE. DENIES CHEST PAIN AND PRESSURE. WHILE AWAKE, PT IS ON ROOM AIR, SATS >90%. USES CPAP WHILE SLEEPING. PUREWICK IN PLACE DUE TO URGENCY RELATED TO DIURESIS. VOIDING LARGE AMOUNTS OF YELLOW URINE. CHANGING PRN TO KEEP CLEAN AND INTACT. BATH PERFORMED BY PCT. CALL LIGHT IN REACH.
--- NOTE | 2023-03-03 16:26 | NUR ---
"Spiritual Care | Nurse Request Pt. is awake and sitting up in bed. Spouse is present. It didn't take long before both the Pt. and Spouse displayed evidence of grief over the recent self inflicted demise of their son, and the present threat of eviction from their landlord. Listened with heightened empathy and a calming presence. Recommendations of local bereavement services are recommended. Prayed with Pt. Pt. verbalized gratitude for the spiritual care visit."
--- NOTE | 2023-03-03 17:15 | NUR ---
SHIFT SUMMARY NO ACUTE CHANGES SINCE ASSUMPTION OF CARE NOTE. PT REMAINS AOX4. DEMONSTRATED EPISODES OF INCREASED ANXIETY, TEARFUL, DUE TO STRESS OUTSIDE OF THE HOSPITAL. PT EXPRESSED FRUSTRATION AND REPORTED DESIRE TO DISCHARGE HOME TODAY. SWITCH MAKER CONTACTED MD CASTANO REGARDING PLAN OF CARE. PLAN TO CONTINUE DIURESIS, POSSIBLE DISCHARGE MONDAY. CARDIOLOGY CONSULTED THIS MORNING. MD CORONEL TO BEDSIDE FOR CONSULT, NO NEW ORDERS RECEIVED. CONTINUING MEDICATION MANAGEMENT PER EMAR. PT AGREEABLE WITH PLAN AT THIS TIME. PASTORAL CARE TO BEDSIDE THIS AFTERNOON TO DISCUSS RECENT LIFE EVENTS. VS REMAIN STABLE. CONTINUES TO REPORT NO CHEST PAIN OR PRESSURE. TELEMETRY CONTINUING TO SHOW SR BBB, RATE 70's-80's. PT SLEPT PERIODICALLY THROUGHOUT SHIFT. USED CPAP WHILE SLEEPING, SATS >90%. REMAINS ON ROOM AIR WHILE AWAKE. FREQUENT HACKING COUGH NOTED WITH MINIMAL CLEAR SPUTUM. PT REPORTS THAT IT IS MOST LIKELY RELATED TO ALLERGIES. PUREWICK IN PLACE, VOIDING YELLOW URINE. NO BM THIS SHIFT. SIGNIFICANT OTHER PRESENT AT BEDSIDE THROUGHOUT SHIFT. CALL LIGHT IN REACH. WILL REPORT TO ONCOMING RN.
--- NOTE | 2023-03-03 23:53 | NUR ---
UPDATE ACCOUNTANT CERTIFIED PUBLIC CALLED THIS RN REGARDING ST ELEVATION CHANGES ON MONITOR. THIS RN INTO ROOM ASSESSING PATIENT. CALL PLACED TO RESIDENT, ORDER FOR EKG RECEIVED. PATIENT WAS SHOWERING PRIOR TO ST CHANGES WITHOUT TELE MONITOR IN PLACE. WHEN PATIENT ASKED IF SHE WAS EXPERIENCING CHEST PAIN, PATIENT STATED "I FELT SOMETHING BUT NOTHING I WAS WORRIED ABOUT". PCT AMD THIS RN AT BEDSIDE PERFORMING EKG. VITALS STABLE AT THIS TIME.
[2023-03-04 05:28] VITALS: BP 154/98
--- NOTE | 2023-03-04 06:18 | NUR ---
SHIFT SUMMARY PATIENT ALERT AND ORIENTED x4, ABLE TO MAKE NEEDS KNOWN TO STAFF. BP STABLE. TELE READING SR WTH BBB, OCCASIONAL VTACH BEATS. SEE PREVIOUS NOTE REGARDING TELE CHANGES. DENIED CHEST PAIN. REFUSING TO WEAR CPAP OVERNIGHT REGARDLESS OF DESATTING INTO LOW 80s AT TIMES, PATIENT STATNG "I JUST WANT TO BE LEFT ALONE". PUREWICK IN PLACE WITH SIGNIFICANT OUTPUT DURING THE NIGHT. STANDBY ASSIST IN ROOM. SIGNIFICANT OTHER AT BEDSIDE. NO OTHER CHANGES, WILL REPORT TO DAY SHIFT RN.
[2023-03-04 06:23] LABS: Hematocrit 44.5 % (33.0-51.0); Hemoglobin 14.9 g/dL (11.5-16.0); Mean Platelet Volume 9.7 fL (9.1-12.4); Platelet Count 270 K/mm3 (150-400)
[2023-03-04 08:18] VITALS: BP 138/90
--- NOTE | 2023-03-04 11:34 | NUR ---
CARE NOTE AT APPROX. 1130 CONSERVATOR ARTIFACTSRIDDHI VELASQUEZ INFORMED THIS RN THAT PT WAS REQUESTING TO GO OUTSIDE BECAUSE SHE NEEDED FRESH AIR. PORTIA LANDA STATED THAT UPON FURTHER INQUIRY, PT REPORTED THAT SHE WANTED TO GO OUTSIDE TO SMOKE. PORTIA LANDA EDUCATED PT THAT [facility] IS A NON-SMOKING CAMPUS. PT THEN STATED THAT SHE WOULD GO ACROSS THE STREET TO SMOKE. PORTIA LANDA FURTHER EDUCATED PT BY STATING THAT LEAVING [facility] WOULD BE CONSIDERED LEAVING AMA, SHE ALSO OFFERED PT A NICOTINE PATCH WHICH THE PT DECLINED. THE PT AGREED TO GO OUTSIDE WITH BARREL STRAIGHTENERKarol SCHERER AND HER AND AGREED THAT SHE WOULD NOT SMOKE. PT AND HER WERE ALSO EDUCATED REGARDING FIRE SAFETY/IGNITION SOURCES. WILL CONTINUE TO EDUCATE AND THERAPEUTICALLY COMMUNICATE REGARDING SMOKING/FIRE SAFETY.
[2023-03-04 12:06] VITALS: BP 139/102
--- NOTE | 2023-03-04 12:12 | NUR ---
CARE NOTE AT APPROX. 1200 PT BECAME TEARFUL WHEN TALKING ABOUT HER SON WHO RECENTLY COMMITTED SUICIDE, THERAPEUTIC COMMUNICATION PROVIDED BY THIS RN. IS ALSO AT BEDSIDE.
[2023-03-04 15:09] VITALS: BP 136/99
--- NOTE | 2023-03-04 17:05 | NUR ---
SHIFT SUMMARY PT IS ALERT AND ORIENTED X 4, SHE IS INDEPENDENT IN THE ROOM. BP STABLE, SPO2 >95% ON RA WHEN AWAKE. SPO2 NOTED TO DROP TO 85% WHEN PT WAS NAPPING THIS AFTERNOON AND WAS ENCOURAGED TO WEAR CPAP BY SNOW HANNON BUT PT DECLINED. PER TELE REPORT, QTC NOTED TO BE PROLONGED AT 0.53 BUT IS OTHERWISE STABLE SR IN 70-80'S. SHE HAS DENIED FEELINGS OF CHEST PAIN/PRESSURE, SOB. PRODUCTIVE COUGH NOTED, SPUTUM NOTED TO BE PINK. PT DENIED FEELINGS OF NAUSEA. HER SIGNIFICANT OTHER HAS BEEN AT BEDSIDE DURING SHIFT. THE PT HAS BEEN TEARFUL AT TIMES AND APPEARS EMOTIONALLY LABILE. THE PT AND HER SIGNIFICANT OTHER HAVE ALSO APPEARED TO HAVE MULTIPLE VERBAL DISPUTES DURING SHIFT. HEPARIN INFUSING PER EMAR ORDERS. PT AND HER PARTNER APPEAR TO BE SLEEPING AT THIS TIME. CALL LIGHT IS W/IN REACH.
[2023-03-04 20:16] VITALS: BP 134/83
[2023-03-05] VITALS: BP 146/94
[2023-03-05 04:15] VITALS: BP 151/97
[2023-03-05 04:34] LABS: Hematocrit 45.1 % (33.0-51.0); Hemoglobin 15.2 g/dL (11.5-16.0); Mean Platelet Volume 9.1 fL (9.1-12.4); Platelet Count 297 K/mm3 (150-400)
--- NOTE | 2023-03-05 06:23 | NUR ---
SHIFT SUMMARY PATIENT ALERT AND ORIENTED, ABLE TO MAKE NEEDS KNOWN TO STAFF. OCCASIONAL TEARFUL MOMENTS. BP STABLE, TELE READING SR, BBB WITH A SLIGHT PROLONGED QTC OF .52 PER DIVER ASSISTANT. ON RA DURING THE NIGHT WITH SPO2 >92%. CPAP AT BEDSIDE FOR PRN USE. PATIENT INDEPENDENT IN THE ROOM, SIGNIFICANT OTHER AT BEDSIDE DURING THE NIGHT. PATIENT USING BEDSIDE COMMODE DURING THE NIGHT WITH SIGNIFICANT OUTPUT. NO OTHER CHANGES, WILL REPORT TO DAY SHIFT RN.
[2023-03-05 08:14] VITALS: BP 163/111
--- NOTE | 2023-03-05 08:55 | NUR ---
AM NOTE PT IS ALERT AND ORIENTED X 4, SHE IS INDEPENDENT IN THE ROOM. SHE DENIES FEELINGS OF CHEST PAIN/PRESSURE, SOB OR NAUSEA/VOMITTING. VSS. HEPARIN INFUSING PER EMAR ORDERS. IS AT THE BEDSIDE. SHE REPORTED THAT PRODUCTIVE COUGH W/ PINK SPUTUM HAS CEASED. CALL LIGHT W/IN REACH.
[2023-03-05 08:58] VITALS: BP 145/99
[2023-03-05 12:14] VITALS: BP 116/85
[2023-03-05] MEDS ORDERED: XARELTO20 MG PO (13:53)
--- NOTE | 2023-03-05 15:08 | NUR ---
DISCHARGE NOTE PT WAS ALERT AND ORIENTED X 4, VSS. SHE DENIED FEELINGS OF CHEST PAIN/PRESSURE, SOB, NAUSEA/VOMITTING. NO COUGH NOTED. SHE WAS INDEPENDENT IN THE ROOM. THIS RN DISCUSSED DISCHARGE INSTRUCTIONS INCLUDING POST HOSPITAL FOLLOW UP APPOINTMENTS, MEDICATIONS AND SMOKING CESSATION. HER SIGNIFICANT OTHER WAS ALSO AT BEDSIDE FOR DISCHARGE INSTRUCTIONS. PT LEFT PCU VIA WHEELCHAIR AT APPROX. 1450 AND WAS ESCORTED BY THIS RN.
== END 2023-03-05 15:07 | disposition home or self-care (01) | DRG 291 ==
LOC: ER 00:22 → ICUE 00:23 → PCU 18:12
PROVIDERS: Emergency Medicine; Family Medicine; Internal Medicine; ADMIT Internal Medicine
PROC: B24BZZZ Ultrasonography of Heart with Aorta (ICD-10-PCS; principal; 2023-03-02)
DX: I11.0 Hypertensive heart disease with heart failure (principal); I26.99 Other pulmonary embolism without acute cor pulmonale; I50.43 Acute on chronic combined systolic (congestive) and diastolic (congestive) heart failure; I42.7 Cardiomyopathy due to drug and external agent; F17.210 Nicotine dependence, cigarettes, uncomplicated; Z11.52 Encounter for screening for COVID-19; I27.20 Pulmonary hypertension, unspecified; E87.6 Hypokalemia; F43.21 Adjustment disorder with depressed mood; E66.9 Obesity, unspecified; J45.909 Unspecified asthma, uncomplicated; F41.9 Anxiety disorder, unspecified; F15.10 Other stimulant abuse, uncomplicated; I36.1 Nonrheumatic tricuspid (valve) insufficiency; Z91.141 Patient's other noncompliance with medication regimen due to financial hardship; Z71.6 Tobacco abuse counseling; Z88.8 Allergy status to other drugs, medicaments and biological substances; Z86.718 Personal history of other venous thrombosis and embolism
CPT/HCPCS: 0241U; 36415; 71046; 71260; 80053; 81001; 83605; 83735; 83880; 84100; 84145; 84443; 84484; 84702; 85014; 85018; 85025; 85049; 85379; 85520; 85610; 85730; 93005; 93010; 94640; 94762; 96374-59; 96375; 96376; 99285-25; A9270; C8929; G0378; J1644; J1940; J3010; Q9957; Q9967

== ENCOUNTER 2023-11-07 11:21 | Inpatient (IN) | payer OTHER ==
[~2023-11-07] VITALS: Ht 149.9 cm; Wt 94.8 kg
[~2023-11-07 11:21] MED LIST changes: +ALBU90OI INH; +CARV25 PO; +CARVEDILOL25 M9 PO; +FUROSEMIDE40 MG PO; +K-Dur20 MEQ PO; +LOSARTAN POTASS25 M2 PO; +Prinivil10 MG PO; +SOAANZ20 M1
[2023-11-07] MEDS ORDERED: Ipratropium/Albuterol SulF 2.5-0.5MG/3 ML Amp INH ONE (12:10)
[2023-11-07] MEDS ORDERED: Furosemide 10 MG/ML 10ML Vial IV ONE (12:10)
[2023-11-07] MEDS ORDERED: Dexamethasone Sod Phos 10 MG/ML 1ML VIAL IV ONE (12:10)
[2023-11-07 12:11] LABS: BASOPHILS ABSOLUTE AUTO 0.05 K/mm3 (0.00-0.23); BASOPHILS PERCENT AUTO 1 % (0-2); EOSINOPHILS ABSOLUTE AUTO 0.02 K/mm3 (0.00-0.68); EOSINOPHILS PERCENT AUTO 0 % (0-6); Hematocrit 43.4 % (33.0-51.0); Hemoglobin 13.2 g/dL (11.5-16.0); IMMATURE GRAN ABSOLUTE AUTO 0.03 K/mm3 (0.00-0.10); IMMATURE GRAN PERCENT AUTO 0 % (0-1); LYMPHOCYTES ABSOLUTE AUTO 0.97 K/mm3 (0.84-5.20); LYMPHOCYTES PERCENT AUTO 13 % (21-46); MONOCYTES ABSOLUTE AUTO 0.67 K/mm3 (0.16-1.47); MONOCYTES PERCENT AUTO 9 % (4-13); Mean Corpuscular HGB 24.5 pg (26.0-34.0); Mean Corpuscular HGB Conc 30.4 g/dL (31.5-36.5); Mean Corpuscular Volume 81 fL (80-100); Mean Platelet Volume 9.5 fL (9.1-12.4); NEUTROPHILS ABSOLUTE AUTO 5.51 K/mm3 (1.96-9.15); NEUTROPHILS PERCENT AUTO 76 % (41-73); NRBC ABSOLUTE 0.02 K/mm3 (0.00-0.02); NRBC Auto 0.3 /100 WBC (0.0-0.2); Platelet Count 336 K/mm3 (150-400); RDW Coefficient Variation 18.8 % (11.7-14.2); RDW Standard Deviation 51.7 fL (35.1-46.3); Red Blood Cell Count 5.39 M/mm3 (3.80-5.20); White Blood Cell Count 7.25 K/mm3 (4.00-11.30)
[2023-11-07 12:30] LABS: Albumin, Blood 2.9 g/dL (3.4-5.0); Albumin/Globulin Ratio 0.6 (0.8-1.8); Bilirubin, Total 1.5 mg/dL (0.1-1.0); Bun/Creatinine Ratio 32.6 (12.0-20.0); Calcium, Blood 8.6 mg/dL (8.5-10.1); Creatinine, Blood 0.71 mg/dL (0.40-1.00); Globulin, Blood 4.8 g/dL (2.2-4.0); Potassium, Blood 4.3 mmol/L (3.5-5.5); Total Protein, Blood 7.7 g/dL (6.4-8.2)
[2023-11-07 12:59] LABS: Source, Urine Clean Catch
[2023-11-07 13:14] LABS: Appearance, Urine Clear (Clear); Bilirubin, Urine Neg (Neg); Blood, Urine Neg (Neg); Color, Urine Yellow (P-Yellow); Glucose Qualitative, Urine Neg (Neg); Ketones, Urine Neg (Neg); Leukocyte Esterase, Urine Neg (Neg); Nitrite, Urine Neg (Neg); Protein, Urine 3+ (Neg); Urobilinogen, Urine 1+ (Normal)
[2023-11-07 13:27] LABS: Amorphous Light (0-Heavy); Bacteria Rare /hpf; Red Blood Cells, Urine 0-2 /hpf (0-2); Squamous Epithelial Cells Few /hpf (Few); White Blood Cells, Urine 0-2 /hpf (0-5)
[2023-11-07] MEDS ORDERED: Acetaminophen 325 MG TABLET PO PRN (17:20)
[2023-11-07] MEDS ORDERED: Ondansetron 4 MG TAB PO PRN (17:25)
[2023-11-07 17:58] VITALS: BP 178/125
[2023-11-07] MEDS ORDERED: Furosemide 10 MG/ML 4ML Vial IV SCH (18:00)
--- NOTE | 2023-11-07 18:47 | NUR ---
ADMISSION NOTE: PATIENT ARRIVES TO ROOM AT 1755 VIA GURNEY FROM ER FOR DX'S OF VOLUME OVERLOAD. PATIENT TRANSFERRED TO BED c SBA, ORIENTATED TO ROOM AND CALL SYSTEM. ADMISSION, MEDRIC AND SKIN ASSESSMENT c 2 RN'S VERIFIED COMPLETED, PURPLE/REDNESS SKIN DISCOLORATION SCATTERED T/O. PATIENT HAS PLUS 3 EDEMA TO ABDOMEN, HIP, BLE'S AND FEET, HYPERTINSIVE. PER REPORTS FROM [facility] -PATIENT RECEIVED 160 MG OF IV LASIX c AN OUTPUT OF 4L. PATIENT ON RA, LUNGS WHEEZY T/O TO AUSCULTATION c OCCASIONAL NON PRODUCTIVE COUGH. PIV TO LAC SL. SCD'S TO BLE'S IN PLACED PER ORDER. CALL LIGHT IN REACH.
[2023-11-07 19:21] VITALS: BP 145/101
[2023-11-07] MEDS ORDERED: Carvedilol 25 MG Tab PO SCH (23:00)
[2023-11-07] MEDS ORDERED: Losartan Potassium 25 MG Tab PO SCH (23:00)
[2023-11-08 00:08] VITALS: BP 151/102
[2023-11-08 02:02] VITALS: BP 164/109
[2023-11-08 04:51] LABS: BASOPHILS ABSOLUTE AUTO 0.01 K/mm3 (0.00-0.23); BASOPHILS PERCENT AUTO 0 % (0-2); EOSINOPHILS PERCENT AUTO 0 % (0-6); Hematocrit 41.3 % (33.0-51.0); Hemoglobin 12.5 g/dL (11.5-16.0); IMMATURE GRAN ABSOLUTE AUTO 0.03 K/mm3 (0.00-0.10); IMMATURE GRAN PERCENT AUTO 0 % (0-1); LYMPHOCYTES ABSOLUTE AUTO 0.66 K/mm3 (0.84-5.20); LYMPHOCYTES PERCENT AUTO 9 % (21-46); MONOCYTES ABSOLUTE AUTO 0.44 K/mm3 (0.16-1.47); MONOCYTES PERCENT AUTO 6 % (4-13); Mean Corpuscular HGB Conc 30.3 g/dL (31.5-36.5); Mean Corpuscular Volume 79 fL (80-100); Mean Platelet Volume 9.5 fL (9.1-12.4); NEUTROPHILS ABSOLUTE AUTO 6.48 K/mm3 (1.96-9.15); NEUTROPHILS PERCENT AUTO 85 % (41-73); Platelet Count 284 K/mm3 (150-400); RDW Coefficient Variation 18.5 % (11.7-14.2); RDW Standard Deviation 51.2 fL (35.1-46.3); White Blood Cell Count 7.62 K/mm3 (4.00-11.30)
[2023-11-08 05:30] LABS: Albumin, Blood 2.6 g/dL (3.4-5.0); Albumin/Globulin Ratio 0.6 (0.8-1.8); Bilirubin, Total 1.2 mg/dL (0.1-1.0); Bun/Creatinine Ratio 30.9 (12.0-20.0); Creatinine, Blood 0.75 mg/dL (0.40-1.00); Globulin, Blood 4.5 g/dL (2.2-4.0); Magnesium, Blood 1.9 mg/dL (1.6-2.4); Potassium, Blood 3.6 mmol/L (3.5-5.5); Total Protein, Blood 7.1 g/dL (6.4-8.2)
--- NOTE | 2023-11-08 06:00 | NUR ---
Shift Summary Pt had 4L output in ED 11/06 and at least another 4L output on this unit, there were some unmeasured voids. Pt is able to ambulate to the bathroom independently, she states she is feeling better than she has in days after all the output. She is no longer on purewick because she is steady on her feet to the bathroom. AOx4. She was hypertensive last night, I called the hospitalist who restarted her home BP meds with first dose now. Follow up BP remained hypertensive, however follow up BP was taken from forearm instead of upper arm. Spouse and dog in the room. Pt does have a dry cough which she says was productive before the Lasix. R lungs are wheezy. SCDs were off because she was taking frequent trips to and they are falling hazards.
[2023-11-08 07:19] VITALS: BP 153/109
[2023-11-08] MEDS ORDERED: Enoxaparin 40 MG/0.4 ML SYR SC SCH (09:00)
[2023-11-08 14:29] VITALS: BP 122/88
--- NOTE | 2023-11-08 18:20 | NUR ---
SHIFT SUMMARY PATIENT ALERT AND INTERACTIVE. PATIENT INDEPENDENT IN THE ROOM. PATIENT CONTINUES TO HAVE EDEMA AND REDNESS BUT IMPROVED FROM THIS MORNING. PATIENT RESPONDING WELL TO LASIX WELL. PATIENT IRRITABLE AT TIMES BUT APOLOGIZES FOR BEHAVIOR. PATIENT VERY EMOTIONAL AND TALKING ABOUT TRAGIC EVENTS THIS AFTERNOON AND ADMITTING THAT SHE HAS NOT BEEN TAKING CARE OF HERSELF. PATIENT STATES THAT SHE KNOWS THAT SHE NEEDS TO WORK ON HER MENTAL HEALTH. PATIENT ENCOURAGED TO SEEK OUTPATIENT THERAPY AND RESOURCES TO HELP WITH CURRENT SITUATION.
[2023-11-08 19:19] VITALS: BP 133/86
[2023-11-08] MEDS ORDERED: DiphenhydrAMINE HCL 25 MG Cap PO ONE (20:15)
[2023-11-08] MEDS ORDERED: HyDROXyzine HCl 10 MG Tab PO PRN (23:55)
[2023-11-09 02:06] VITALS: BP 126/53
--- NOTE | 2023-11-09 04:38 | NUR ---
SHIFT SUMMARY PT IS A&O X4, PLEASANT AND COOP WITH CARE. AT HS, PT. SHOWERED AND IV DRESSING LOOSE, IV HAD PULLED OUT AND NEW IV INSERTED BY CHARGE NURSE PEREZ. PT. SUDDENLY EMOTIONAL,LAID DOWN WITH ASSISTANCE FROM HER AND RN PEREZ. THIS ROBOTICS ENGINEER CALLED THE HOSPITALIST, NEW ORDER HYDROXYZINE 25MG PO PRN Q6. AT THE BEGINNING OF THIS SHIFT, PT.SCRATCHING SKIN ALL OVER THE BODY, BENADRYL 25MG PO ONCE FROM [facility] ONE TIME ORDER. PT. HAS EDEMA +2 to +3 LE.PT REPORTS THE ABDOMEN IS GETTING ALREADY SMALLER D/T DIURETICS. PT. REPORTS PAIN IN ABDOMEN , PRN PAIN MEDS ADMINISTERED (SEE EMAR.) NO ACUTE EVENTS DURING THIS SHIFT. CALL LIGHT IN REACH, AND SERVICEDOG AICHA SPENDING THE NIGHT IN THE HOSPITAL WITH THE PT. WILL HANDOFF TO THE INCOMING SHIFT NURSE.
[2023-11-09 07:38] VITALS: BP 157/113
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
[2023-11-09 16:51] VITALS: BP 115/104
[2023-11-09 19:16] VITALS: BP 108/64
[2023-11-10 04:44] VITALS: BP 112/78
[2023-11-10 05:06] LABS: BASOPHILS ABSOLUTE AUTO 0.08 K/mm3 (0.00-0.23); BASOPHILS PERCENT AUTO 1 % (0-2); EOSINOPHILS ABSOLUTE AUTO 0.15 K/mm3 (0.00-0.68); EOSINOPHILS PERCENT AUTO 2 % (0-6); Hematocrit 45.4 % (33.0-51.0); Hemoglobin 13.9 g/dL (11.5-16.0); IMMATURE GRAN ABSOLUTE AUTO 0.03 K/mm3 (0.00-0.10); IMMATURE GRAN PERCENT AUTO 0 % (0-1); LYMPHOCYTES ABSOLUTE AUTO 1.95 K/mm3 (0.84-5.20); LYMPHOCYTES PERCENT AUTO 23 % (21-46); MONOCYTES ABSOLUTE AUTO 0.96 K/mm3 (0.16-1.47); MONOCYTES PERCENT AUTO 11 % (4-13); Mean Corpuscular HGB 24.6 pg (26.0-34.0); Mean Corpuscular HGB Conc 30.6 g/dL (31.5-36.5); Mean Corpuscular Volume 80 fL (80-100); Mean Platelet Volume 9.8 fL (9.1-12.4); NEUTROPHILS ABSOLUTE AUTO 5.28 K/mm3 (1.96-9.15); NEUTROPHILS PERCENT AUTO 62 % (41-73); Platelet Count 378 K/mm3 (150-400); RDW Standard Deviation 51.8 fL (35.1-46.3); Red Blood Cell Count 5.65 M/mm3 (3.80-5.20); White Blood Cell Count 8.45 K/mm3 (4.00-11.30)
[2023-11-10 05:28] LABS: Bun/Creatinine Ratio 34.3 (12.0-20.0); Calcium, Blood 8.9 mg/dL (8.5-10.1); Creatinine, Blood 0.82 mg/dL (0.40-1.00); Potassium, Blood 3.9 mmol/L (3.5-5.5)
--- NOTE | 2023-11-10 06:28 | NUR ---
NOC SHIFT SUMMARY PT WAS ABLE TO SLEEP WELL AND IS HAVING LESS ANXIETY THAN YESTERDAY. EDUCATION REGARDING HEART FAILURE AND FLUID RESTRICTION REINFORCED.
[2023-11-10 07:58] VITALS: BP 139/82
[2023-11-10 14:21] VITALS: BP 121/70
--- NOTE | 2023-11-10 14:40 | NUR ---
THIS RN PROVIDING BREAK COVERAGE FOR PRIMARY RN. PATIENT BEING NON-COMPLIANT WITH FLUID RESTRICTION AND REQUESTING SPRITE FROM CLARIFYING PLANT OPERATOR OR THREATENING TO LEAVE.
[2023-11-10] MEDS ORDERED: ALPRAZolam 0.25 MG Tab PO PRN (14:50)
--- NOTE | 2023-11-10 18:32 | NUR ---
SHIFT SUMMARY AT BEGINING OF SHIFT, PATIENT TEARFUL AND WANTING TO LEAVE. PROVIDED ACTIVE LISTENING AND SUPPORT TO PATIENT. PATIENT WILLING TO STAY, JUST STATES THAT SHE IS TIRED OF BEING IN THE HOSPITAL AND WANTS TO SEE HER FAMILY MEMBER ON 11/13. PATIENT COOPERATIVE THE REST OF THE SHIFT WITH CARE. PATIENT NEEDING REINFORCEMENT ON EDUCATION RELATED TO DIET AND FLUID INTAKE. PATIENT CONTINUES TO DIURESE WITH LASIX.
[2023-11-10] MEDS ORDERED: Sacubitril/Valsartan 49 MG/51 MG Tab PO SCH (21:00)
--- NOTE | 2023-11-10 21:11 | NUR ---
AT BEGINNING OF SHIFT PT STATED DESIRE TO LEAVE AMA DUE TO HIGH ANXIETY TO BEING IN HOSPITAL. PT WAS EDUCATED ON THE RISKS AND BENEFITS OF LEAVING AMA. PT UNDERSTOOD RISKS AND STILL WAS ADAMANT ABOUT LEAVING. HOSPITALIST NOTIFIED OF PT DESIRE TO LEAVE AMA AND THAT PT WAS A/O X 4 AND GIVEN EDUCATION AGAINST LEAVING AND WAS OK WITH PT LEAVING. PT SIGNIFICANT OTHER CAME AND PICKED PT UP @ 1999 AND LEFT WITH ALL BELONGINGS.
[2023-11-11] MEDS ORDERED: Sertraline HCl 50 MG Tab PO SCH (09:00)
== END 2023-11-10 20:04 | disposition left against medical advice (07) | DRG 291 ==
LOC: ER 11:21 → MEDS 16:41
PROVIDERS: Emergency Medicine; Physician Assistant; ADMIT Internal Medicine
DX: I11.0 Hypertensive heart disease with heart failure (principal); I50.41 Acute combined systolic (congestive) and diastolic (congestive) heart failure; F41.9 Anxiety disorder, unspecified; J45.909 Unspecified asthma, uncomplicated; F43.20 Adjustment disorder, unspecified; F15.10 Other stimulant abuse, uncomplicated; F17.210 Nicotine dependence, cigarettes, uncomplicated; F32.9 Major depressive disorder, single episode, unspecified; F10.10 Alcohol abuse, uncomplicated; Z53.29 Procedure and treatment not carried out because of patient's decision for other reasons; Z88.8 Allergy status to other drugs, medicaments and biological substances; Z79.899 Other long term (current) drug therapy; Z79.51 Long term (current) use of inhaled steroids; Z79.01 Long term (current) use of anticoagulants; Z98.890 Other specified postprocedural states; Z98.51 Tubal ligation status
CPT/HCPCS: 36415; 71260; 80048; 80053; 81001; 83690; 83735; 85025; 93005; 93010; 94640; 94664; 96374-59; 96375-59; 99285-25; A9270; J1100; J1650; J1940; Q9967

== ENCOUNTER 2024-01-08 19:56 | Emergency (ER) | payer OTHER ==
[~2024-01-08] VITALS: Ht 149.9 cm; Wt 117.9 kg
[2024-01-08 20:36] LABS: BASOPHILS ABSOLUTE AUTO 0.05 K/mm3 (0.00-0.23); BASOPHILS PERCENT AUTO 1 % (0-2); EOSINOPHILS ABSOLUTE AUTO 0.12 K/mm3 (0.00-0.68); EOSINOPHILS PERCENT AUTO 2 % (0-6); Hematocrit 41.8 % (33.0-51.0); Hemoglobin 12.8 g/dL (11.5-16.0); IMMATURE GRAN ABSOLUTE AUTO 0.02 K/mm3 (0.00-0.10); IMMATURE GRAN PERCENT AUTO 0 % (0-1); LYMPHOCYTES ABSOLUTE AUTO 0.93 K/mm3 (0.84-5.20); LYMPHOCYTES PERCENT AUTO 17 % (21-46); MONOCYTES ABSOLUTE AUTO 0.49 K/mm3 (0.16-1.47); MONOCYTES PERCENT AUTO 9 % (4-13); Mean Corpuscular HGB 25.2 pg (26.0-34.0); Mean Corpuscular HGB Conc 30.6 g/dL (31.5-36.5); Mean Corpuscular Volume 82 fL (80-100); Mean Platelet Volume 9.5 fL (9.1-12.4); NEUTROPHILS ABSOLUTE AUTO 4.04 K/mm3 (1.96-9.15); NEUTROPHILS PERCENT AUTO 71 % (41-73); Platelet Count 316 K/mm3 (150-400); RDW Coefficient Variation 22.7 % (11.7-14.2); RDW Standard Deviation 66.3 fL (35.1-46.3); Red Blood Cell Count 5.07 M/mm3 (3.80-5.20); White Blood Cell Count 5.65 K/mm3 (4.00-11.30)
[2024-01-08 20:54] LABS: Albumin, Blood 2.6 g/dL (3.4-5.0); Albumin/Globulin Ratio 0.6 (0.8-1.8); Bilirubin, Total 1.6 mg/dL (0.1-1.0); Bun/Creatinine Ratio 20.9 (12.0-20.0); Calcium, Blood 8.8 mg/dL (8.5-10.1); Creatinine, Blood 0.77 mg/dL (0.40-1.00); Globulin, Blood 4.4 g/dL (2.2-4.0); Potassium, Blood 4.3 mmol/L (3.5-5.5)
[2024-01-08] MEDS ORDERED: Albuterol 2.5 MG/3 ML VIAL INH ONE (21:15)
[2024-01-08] MEDS ORDERED: Furosemide 10 MG/ML 10ML Vial IV ONE (22:20)
[2024-01-08 22:30] VITALS: BP 136/70
[2024-01-08] MEDS ORDERED: ALBU90OI INH (22:40)
[2024-01-08] MEDS ORDERED: FURO40 PO (22:40)
== END 2024-01-08 22:48 | disposition home or self-care (01) ==
LOC: ER 19:56
PROVIDERS: Student in an Organized Health Care Education/Training Program
DX: I11.0 Hypertensive heart disease with heart failure (principal); I50.9 Heart failure, unspecified; F17.210 Nicotine dependence, cigarettes, uncomplicated; Z88.8 Allergy status to other drugs, medicaments and biological substances; Z79.02 Long term (current) use of antithrombotics/antiplatelets; Z79.899 Other long term (current) drug therapy; Z91.148 Patient's other noncompliance with medication regimen for other reason
CPT/HCPCS: 71045; 80053; 83880; 85025; 93005; 93010; 94640; 94664; 96374; 99285-25; J1940

== ENCOUNTER 2024-03-25 12:52 | Inpatient (IN) | payer OTHER ==
[~2024-03-25] VITALS: Ht 149.9 cm; Wt 111.1 kg
[~2024-03-25 12:52] MED LIST changes: +ALDACTONE25 MG PO; +ENTRESTO 24 MG1 EACH PO; +FARXIGA10 MG PO; +SOAANZ20 MG PO
[2024-03-25 14:28] LABS: BASOPHILS ABSOLUTE AUTO 0.06 K/mm3 (0.00-0.23); BASOPHILS PERCENT AUTO 1 % (0-2); EOSINOPHILS ABSOLUTE AUTO 0.03 K/mm3 (0.00-0.68); EOSINOPHILS PERCENT AUTO 1 % (0-6); Hemoglobin 12.6 g/dL (11.5-16.0); IMMATURE GRAN ABSOLUTE AUTO 0.02 K/mm3 (0.00-0.10); IMMATURE GRAN PERCENT AUTO 0 % (0-1); LYMPHOCYTES ABSOLUTE AUTO 0.99 K/mm3 (0.84-5.20); LYMPHOCYTES PERCENT AUTO 19 % (21-46); MONOCYTES ABSOLUTE AUTO 0.51 K/mm3 (0.16-1.47); MONOCYTES PERCENT AUTO 10 % (4-13); Mean Corpuscular HGB 25.7 pg (26.0-34.0); Mean Corpuscular HGB Conc 30.7 g/dL (31.5-36.5); Mean Corpuscular Volume 84 fL (80-100); Mean Platelet Volume 9.5 fL (9.1-12.4); NEUTROPHILS ABSOLUTE AUTO 3.55 K/mm3 (1.96-9.15); NEUTROPHILS PERCENT AUTO 69 % (41-73); Platelet Count 289 K/mm3 (150-400); RDW Coefficient Variation 20.3 % (11.7-14.2); RDW Standard Deviation 60.7 fL (35.1-46.3); White Blood Cell Count 5.16 K/mm3 (4.00-11.30)
[2024-03-25 15:02] LABS: Albumin, Blood 2.9 g/dL (3.4-5.0); Albumin/Globulin Ratio 0.6 (0.8-1.8); Bilirubin, Total 3.8 mg/dL (0.1-1.0); Bun/Creatinine Ratio 23.9 (12.0-20.0); Creatinine, Blood 0.79 mg/dL (0.40-1.00); Globulin, Blood 4.6 g/dL (2.2-4.0); Potassium, Blood 3.5 mmol/L (3.5-5.5); Total Protein, Blood 7.5 g/dL (6.4-8.2)
[2024-03-25] MEDS ORDERED: FLU VACC TS2024-25(6MOS UP)/PF 45 MCG/0.5 ML SYRINGE IM SCH (18:20)
[2024-03-25] MEDS ORDERED: Potassium Chloride 20 MEQ/15 ML UDC PO ONE (19:00)
[2024-03-25 22:04] VITALS: BP 146/92
[2024-03-25] MEDS ORDERED: Ondansetron 4 MG SoluTab MM PRN (22:55)
[2024-03-25] MEDS ORDERED: HYDROcodone 10-APAP 325 TAB PO PRN (22:55)
[2024-03-25] MEDS ORDERED: QUEtiapine Fumarate 25 MG Tab PO ONE (23:00)
[2024-03-25] MEDS ORDERED: Acetaminophen 325 MG TABLET PO PRN (23:00)
[2024-03-25] MEDS ORDERED: Ondansetron HCl 2 MG / ML 2ML Vial IV ONE (23:00)
[2024-03-25] MEDS ORDERED: Ketorolac Tromethamine 15mg Vial IV PRN (23:10)
[2024-03-25 23:20] VITALS: BP 130/97
[2024-03-25 23:43] VITALS: BP 133/99
[2024-03-26] VITALS (15 sets, daily range): BP systolic 122–152; BP diastolic 94–134
--- NOTE | 2024-03-26 00:59 | NUR ---
UPDATE PT REPORTS RECENT METH USE BEFORE ADMISSION WELL NEW DESIRE TO QUIT AFTER THIS HOSPITAL VISIT. PT CAME IN WITH SEVERAL HOME MEDICATIONS THAT WERE LOCKED UP IN MEDICATION DRAWER. PRIMARY RN PAMELLA ASKED PT IF STAFF COULD GO THROUGH PT'S PURSE TO LOOK FOR MORE HOME MEDICATIONS TO WHICH PT REFUSED. PT EDUCATED THOROUGHLY ON IMPORTANCE TO NOT TAKE ANY HOME MEDICATIONS WHILE ADMITTED IN THE HOSPITAL. PT VERBALIZED UNDERSTANDING OF TEACHING. PT'S MOTHER AND SIGNIFICANT OTHER TO ROOM ACCOMPANIED BY DOG TO VISIT PT. PT STATES DOG IS HER SERVICE ANIMAL THAT HELPS WITH ANXIETY. PT AND HER FAMILY EDUCATED ON TENDING TO ANIMALS NEEDS DURING PT'S HOSPITAL STAY WELL NOT ALLOWING ANIMAL TO INTERFERE WITH PT CARE. PT'S SPOUSE IRRITABLE WITH STAFF STATING, "IF THE DOG CANT STAY THEN ILL CHECK HER OUT OF HERE AND TAKE HER TO [facility] RIGHT NOW". PT AND FAMILY EDUCATED AGAIN BY STAFF OF [facility] THAT STATE THE SERVICE ANIMAL CAN STAY AND THAT STAFF ARE NOT SAYING THE DOG HAS TO LEAVE. ONLY THAT PT AND HER FAMILY ARE RESPONSIBLE FOR TAKING CARE OF SAID ANIMAL. NURSING MARKING MACHINE OPERATOR BRITTANY MADE AWARE OF SERVICE ANIMAL.
[2024-03-26 04:18] LABS: BASOPHILS ABSOLUTE AUTO 0.05 K/mm3 (0.00-0.23); BASOPHILS PERCENT AUTO 1 % (0-2); EOSINOPHILS ABSOLUTE AUTO 0.05 K/mm3 (0.00-0.68); EOSINOPHILS PERCENT AUTO 1 % (0-6); Hematocrit 39.9 % (33.0-51.0); Hemoglobin 12.5 g/dL (11.5-16.0); IMMATURE GRAN ABSOLUTE AUTO 0.01 K/mm3 (0.00-0.10); IMMATURE GRAN PERCENT AUTO 0 % (0-1); LYMPHOCYTES PERCENT AUTO 17 % (21-46); MONOCYTES ABSOLUTE AUTO 0.61 K/mm3 (0.16-1.47); MONOCYTES PERCENT AUTO 12 % (4-13); Mean Corpuscular HGB 26.1 pg (26.0-34.0); Mean Corpuscular HGB Conc 31.3 g/dL (31.5-36.5); Mean Corpuscular Volume 83 fL (80-100); Mean Platelet Volume 9.9 fL (9.1-12.4); NEUTROPHILS ABSOLUTE AUTO 3.69 K/mm3 (1.96-9.15); NEUTROPHILS PERCENT AUTO 70 % (41-73); Platelet Count 254 K/mm3 (150-400); RDW Coefficient Variation 20.3 % (11.7-14.2); RDW Standard Deviation 59.2 fL (35.1-46.3); Red Blood Cell Count 4.79 M/mm3 (3.80-5.20); White Blood Cell Count 5.31 K/mm3 (4.00-11.30)
[2024-03-26 04:42] LABS: Magnesium, Blood 1.9 mg/dL (1.6-2.4)
[2024-03-26 04:52] LABS: Alanine Aminotransfer (ALT/SGP 33 U/L (12-78); Albumin, Blood 2.6 g/dL (3.4-5.0); Albumin/Globulin Ratio 0.6 (0.8-1.8); Alk Phos 184 U/L (50-136); Anion Gap 11 mmol/L (3-11); Aspartate Aminotrans (AST/SGOT 46 U/L (12-37); Bilirubin, Total 3.8 mg/dL (0.1-1.0); Blood Urea Nitrogen 18 mg/dL (8-24); Bun/Creatinine Ratio 25.9 (12.0-20.0); CHOL/HDL RATIO 4.8; CO2, Blood 26 mmol/L (21-32); Calcium, Blood 8.8 mg/dL (8.5-10.1); Chloride, Blood 102 mmol/L (98-108); Cholesterol 95 mg/dL (50-200); Globulin, Blood 4.5 g/dL (2.2-4.0); Glomerular Filtration Rate 113 (60-); Glucose, Blood 140 mg/dL (70-99); HDL Cholesterol 20 mg/dL (>39); LDL/HDL RATIO 3.1; Low Density Lipoprotein Chol 62 mg/dL (0-110); Potassium, Blood 4.1 mmol/L (3.5-5.5); Sodium, Blood 135 mmol/L (136-145); Total Protein, Blood 7.1 g/dL (6.4-8.2); Triglycerides 63 mg/dL (30-140); Very Low Density Lipoprot Chol 12 mg/dL (6-28)
--- NOTE | 2024-03-26 06:18 | NUR ---
SHIFT SUMMARY ASSUMED CARE OF PT AT 2158 WHEN RECEIVED FROM ED VIA STRETCHER, PT TRANSFERRED TO HOSPITAL BED, AFEBRILE, VSS, PT ALERT AND ORIENTED X4, FOLLOWS COMMANDS, TEARFUL, C/O BLE PAIN AND CRAMPING, PT REQUESTING HER PURSE TO TAKE HER HOME MEDS TO " HELP WITH THE CRAMPS" AND THAT SHE WILL HAVE HER MOM BRING HER PICKLE JUICE TO DRINK TO STOP THE CRAMPS. PT EDUCATED ON NOT TAKING HOME MEDS WHILE IN HOSPITAL AND DANGERS OF INTERACTIONS OR DOUBLE DOSES BEING GIVEN IF SHE DOES TAKE HOME MEDS, PT VOICES UNDERSTANDING AND AGREES TO PLACE HOME MEDS IN LOCKED BOX OUTSIDE OF ROOM, HOME MEDS ARE IN HER PURSE AND PT STATES " I DO NOT GIVE YOU PERMISSION TO SEARCH MY BELONGINGS AT ALL, ONLY TO PUT THE MEDS UP" PT TAKES 3 BOTTLES OUT OF PURSE AND HANDS TO NURSE WITH PURSE PLACED BACK IN CHAIR BESIDE BED. PT COOPERATIVE WITH ASSESSMENTS AND ADMISSION REQUIREMENTS. PT C/O NAUSEA AND DID VOMIT IN BED, MD AWARE OF PT C/O WITH NEW ORDERS RECEIVED AND PT MEDICATED WITH SEROQUEL 25 MG PO, NORCO 10/325 PO AND 4 MG ZOFRAN IVP TO RIGHT HAND PIV, TOLERATED WELL, SWALLOWED WITHOUT DIFFICULTY, ZOFRAN EFFECTIVE, PUREWICK PLACED, SIGNIFICANT OTHER REMAINS AT BEDSIDE WITH DOG AT THIS TIME, PT RESTING IN BED WITH EYES CLOSED, RESP EVEN AND UNLABORED, NO DISTRESS NOTED, NORCO AND SEROQUEL EFFECTIVE, NOTED MULTIPLE ULCERS TO BLE, LLQ ABD, AND DARK REDNESS TO BLE, ABD AND RIGHT HIP/ FLANK, =1 BLE EDEMA NOTED, SIDE RAILS UP X2 CALL LIGHT IN REACH IVP
[2024-03-26] MEDS ORDERED: Potassium Chloride 10 Meq Tablet SA PO SCH (08:00)
[2024-03-26] MEDS ORDERED: Enoxaparin 40 MG/0.4 ML SYR SC SCH (09:00)
[2024-03-26] MEDS ORDERED: Spironolactone 12.5 MG TAB PO SCH (09:00)
[2024-03-26] MEDS ORDERED: Metoprolol Succinate 25 MG TABCR PO SCH (09:00)
[2024-03-26] MEDS ORDERED: Bumetanide 0.25 MG/ML 4ML ViaL IV SCH (09:00)
[2024-03-26] MEDS ORDERED: Ipratropium/Albuterol SulF 2.5-0.5MG/3 ML Amp INH SCH (11:05)
[2024-03-26 12:37] LABS: U Amphetamine Screen Not Detected; U Barbituate Screen Not Detected; U Benzodiazapine Screen Not Detected; U Buprenorphine Screen Not Detected; U Cannabinoids Screen Not Detected; U Cocaine Screen Not Detected; U Methadone Screen Not Detected; U Methamphetamine Screen DETECTED; U Opiates Screen DETECTED; U Oxycodone Screen Not Detected; U Phencyclidine Screen Not Detected
[2024-03-26 14:25] LABS: Bun/Creatinine Ratio 25.4 (12.0-20.0); Calcium, Blood 8.9 mg/dL (8.5-10.1); Creatinine, Blood 0.71 mg/dL (0.40-1.00); Potassium, Blood 4.3 mmol/L (3.5-5.5)
[2024-03-26] MEDS ORDERED: Magnesium Sulf 2 GM/Water 50ML 50 ML IV STA (16:17)
[2024-03-26] MEDS ORDERED: NS 250 ML IV PRN (16:20)
[2024-03-26] MEDS ORDERED: HydrALAZINE HCl 20 MG / ML 1ML Vial IV PRN (16:25)
--- NOTE | 2024-03-26 18:21 | NUR ---
SHIFT SUMMARY Pt more alert throughout shift. Very plesant with cares. Alert and able to make needs known. Echo done. Started on Bumex with good response. Seen by cardiology as well as nutrition and dental hygenist. BP elevated throughout shift, Dr. Snow notified and aware. Electrolytes replaced. Pt had one episode today of severe musle cramping, given NORCO per mar with good effect. Partner Kaylen and patient's therapy dog left around 0800 this morning and returned to room at approx. 1700.
--- NOTE | 2024-03-26 23:19 | NUR ---
UPDATE ASSUMED CARE OF PT AT 190, ALERT AND ORIENTED X4, RESP EVEN AND UNLABORED ON 2 LPM NC, FOLLOWS COMMANDS, PLEASANT DEMEANOR NOTED, ABLE TO MAKE NEEDS KNOWN. 1919 ASSISTED PT UP TO STAND BESIDE BED WITH STANDBY ASSIST PER REQUEST FOR BLE CRAMPS. PT GIVEN COMPLETE BEDBATH WHILE STANDING WITH BATH WIPES, SHEETS, BLANKETS AND PILLOW CASES CHANGED, HAIR CARE DONE, PERICARE DONE AND PUREWICK CHANGED, NEW BRIEF IN PLACE. ASSISTED X1 BACK TO BED. PT TOLERATED WELL 2129 WOUND CARE TO BLE DONE PER ORDERS PT TOLERATED WELL 2257 PT C/O PAIN TO BLE RATED AT 5 ON SCALE OF 0-10, MEDICATED WITH 1 TAB NORCO 10/325 PO. SWALLOWED WITHOUT DIFFICULTY PARTNER CAROLANN AND PT THERAPY DOG AT BEDSIDE
[2024-03-27 00:07] VITALS: BP 132/93
[2024-03-27 03:57] VITALS: BP 127/94
[2024-03-27 05:00] LABS: BASOPHILS ABSOLUTE AUTO 0.07 K/mm3 (0.00-0.23); BASOPHILS PERCENT AUTO 1 % (0-2); EOSINOPHILS ABSOLUTE AUTO 0.16 K/mm3 (0.00-0.68); EOSINOPHILS PERCENT AUTO 3 % (0-6); Hematocrit 41.4 % (33.0-51.0); Hemoglobin 12.5 g/dL (11.5-16.0); IMMATURE GRAN ABSOLUTE AUTO 0.02 K/mm3 (0.00-0.10); IMMATURE GRAN PERCENT AUTO 0 % (0-1); LYMPHOCYTES ABSOLUTE AUTO 0.92 K/mm3 (0.84-5.20); LYMPHOCYTES PERCENT AUTO 16 % (21-46); MONOCYTES ABSOLUTE AUTO 0.58 K/mm3 (0.16-1.47); MONOCYTES PERCENT AUTO 10 % (4-13); Mean Corpuscular HGB 25.7 pg (26.0-34.0); Mean Corpuscular HGB Conc 30.2 g/dL (31.5-36.5); Mean Corpuscular Volume 85 fL (80-100); NEUTROPHILS ABSOLUTE AUTO 3.88 K/mm3 (1.96-9.15); NEUTROPHILS PERCENT AUTO 69 % (41-73); Platelet Count 230 K/mm3 (150-400); RDW Coefficient Variation 20.5 % (11.7-14.2); RDW Standard Deviation 61.3 fL (35.1-46.3); Red Blood Cell Count 4.87 M/mm3 (3.80-5.20); White Blood Cell Count 5.63 K/mm3 (4.00-11.30)
[2024-03-27 05:38] LABS: Magnesium, Blood 1.9 mg/dL (1.6-2.4)
[2024-03-27 05:39] LABS: Albumin, Blood 2.6 g/dL (3.4-5.0); Albumin/Globulin Ratio 0.6 (0.8-1.8); Bilirubin, Total 2.7 mg/dL (0.1-1.0); Bun/Creatinine Ratio 28.4 (12.0-20.0); Calcium, Blood 8.4 mg/dL (8.5-10.1); Creatinine, Blood 0.78 mg/dL (0.40-1.00); Globulin, Blood 4.6 g/dL (2.2-4.0); Potassium, Blood 3.8 mmol/L (3.5-5.5); Total Protein, Blood 7.2 g/dL (6.4-8.2)
[2024-03-27] MEDS ORDERED: Potassium Chloride 10 Meq Tablet SA PO SCH (06:00)
[2024-03-27] MEDS ORDERED: Mag Sulfate 1 GM/D5% 100ML 100 ML IV STA (06:03)
--- NOTE | 2024-03-27 06:32 | NUR ---
SHIFT SUMMARY PT MEDICATED X1 WITH NORCO PRN FOR X/O PAIN AND CRAMPING THE BLE, AFEBRILE, PT DESAT NUMEROUS TIMES WHILE SLEEPING TO O2 SAT 70s% WHEN ACCIDENTLY REMOVING NC, REMAINS >90% WITH O2 A T3PLM NC AND RECOVERS QUICKY TO >90% WHEN O2 REPLACED TO NC DRESSINGS TO BLE CLEAN,DRY AND INTACT, PT COMPLIANT WITH FLUID RESRICTION, CALLED AND NOTIFIED AT 0555 OF POTASSIUM 3.8 AND MAG 1.9 WITH GOAL OF POTASSSIUM>4 AND MAG>2, NEW ELECTROLYTE REPLACEMENT ORDERS RECIEVED
[2024-03-27 08:03] VITALS: BP 133/108
[2024-03-27] MEDS ORDERED: Bumetanide 0.25 MG/ML 4ML ViaL IV SCH (09:00)
[2024-03-27 11:56] VITALS: BP 122/101
[2024-03-27 15:18] VITALS: BP 137/93
[2024-03-27] MEDS ORDERED: Ondansetron HCl 2 MG / ML 2ML Vial IV PRN (15:35)
[2024-03-27 16:54] LABS: Magnesium, Blood 1.9 mg/dL (1.6-2.4)
[2024-03-27 17:15] LABS: Bun/Creatinine Ratio 25.6 (12.0-20.0); Calcium, Blood 8.7 mg/dL (8.5-10.1); Creatinine, Blood 0.94 mg/dL (0.40-1.00); Potassium, Blood 4.3 mmol/L (3.5-5.5)
--- NOTE | 2024-03-27 17:43 | NUR ---
END OF SHIFT NOTE: NO ACUTE EVENTS THIS SHIFT. PT A/OX4, ANXIOUS AT TIMES. ABLE TO COMMUNICATE NEEDS W/ STAFF. HR 80-90'S, SINUS RHYTHM W/ BBB ON TELE. SBP 120-130'S, DENIES CHEST PAIN/PRESSURE. SPO2 >90% ON ROOM AIR-3L NC; PT DESATURATES FREQUENTLY WHILE ASLEEP & WHILE AWAKE AT TIMES, O2 NEEDED TO MAINTAIN SPO2 >90%. AFEBRILE. PUREWICK IN PLACE PER PT REQUEST FOR STRICT I&O, 2550 ML URINE OUTPUT OF TIME OF THIS NOTE. NO BM'S. PT W/ EPISODE OF VOMITING THIS AFTERNOON, ZOFRAN ADMINISTERED PER EMAR W/ RELIEF. UP TO SHOWER THIS AFTERNOON. WOUND CARE TO BLE'S COMPLETED PER ORDERS. PT DENIES PAIN. NO OTHER NEEDS AT THIS TIME. SIGNIFICANT OTHER & FAMILY/FRIENDS AT BEDSIDE AT THIS TIME. CALL LIGHT IN REACH.
[2024-03-27 20:00] VITALS: BP 127/92
--- NOTE | 2024-03-27 21:34 | NUR ---
PT IS ALERT AND ORIENTED X4, PT IS AWARE OF WHAT IS GOING ON. PT HEART RATE IS 91, SINUS RHYTHM, PT DENIES CHEST PAIN. PT SOUNDS CLEAR/DIMINISHED AND DENIES ANY SHORTNESS OF BREATHE, WAS ON ROOM AIR ALL DAY BUT WEARS 1-2L AT NIGHT TO KEEP SATURATION >90%. PT HAS A PUREWICK HOOKED UP AND IS COMFORTBALE WITH IT. PT DOES HAVE ULCERS ON BILATERAL LOWER EXTREMITIES. WILL MONITOR HOURLY TO CHECK FOR ANY WEAPING. NO OTHER INTERVENTIONS AT THIS TIME. PT IS NPO AT MIDNIGHT FOR HEART CATH IN AM. PLAN OF CARE CONTINUED.
[2024-03-28] VITALS (14 sets, daily range): BP systolic 109–139; BP diastolic 78–102
--- NOTE | 2024-03-28 00:31 | NUR ---
PT MORE DIFFICULT TO AROUSE, STILL ANSWERING ORIENTATION QUESTIONS APPROPRIATLEY. PT STILL FOLLOWING COMMANDS. LIPS LOOK MORE BLUE. DR. JENNINGS NOTIFIED, STAT [facility] ORDERED.
[2024-03-28 01:58] LABS: Base Excess Venous 9.4 mmol/L; Bicarbonate Venous 32.5 mmol/L (24.0-30.0); PCO2 Venous 38.4 mmHg (38-42)
[2024-03-28 01:59] LABS: pH Blood Venous 7.53 (7.34-7.37)
[2024-03-28 02:10] LABS: BASOPHILS ABSOLUTE AUTO 0.07 K/mm3 (0.00-0.23); BASOPHILS PERCENT AUTO 1 % (0-2); EOSINOPHILS ABSOLUTE AUTO 0.12 K/mm3 (0.00-0.68); EOSINOPHILS PERCENT AUTO 2 % (0-6); Hematocrit 41.4 % (33.0-51.0); Hemoglobin 12.8 g/dL (11.5-16.0); IMMATURE GRAN ABSOLUTE AUTO 0.02 K/mm3 (0.00-0.10); IMMATURE GRAN PERCENT AUTO 0 % (0-1); LYMPHOCYTES ABSOLUTE AUTO 1.04 K/mm3 (0.84-5.20); LYMPHOCYTES PERCENT AUTO 14 % (21-46); MONOCYTES ABSOLUTE AUTO 0.88 K/mm3 (0.16-1.47); MONOCYTES PERCENT AUTO 12 % (4-13); Mean Corpuscular HGB Conc 30.9 g/dL (31.5-36.5); Mean Corpuscular Volume 84 fL (80-100); Mean Platelet Volume 9.7 fL (9.1-12.4); NEUTROPHILS PERCENT AUTO 72 % (41-73); Platelet Count 263 K/mm3 (150-400); RDW Coefficient Variation 20.6 % (11.7-14.2); RDW Standard Deviation 60.1 fL (35.1-46.3); Red Blood Cell Count 4.92 M/mm3 (3.80-5.20); White Blood Cell Count 7.53 K/mm3 (4.00-11.30)
[2024-03-28 02:13] LABS: Magnesium, Blood 1.7 mg/dL (1.6-2.4)
[2024-03-28 02:41] LABS: Albumin, Blood 2.6 g/dL (3.4-5.0); Albumin/Globulin Ratio 0.6 (0.8-1.8); Bilirubin, Total 2.3 mg/dL (0.1-1.0); Bun/Creatinine Ratio 26.1 (12.0-20.0); Calcium, Blood 8.6 mg/dL (8.5-10.1); Creatinine, Blood 0.88 mg/dL (0.40-1.00); Globulin, Blood 4.6 g/dL (2.2-4.0); Potassium, Blood 3.4 mmol/L (3.5-5.5); Total Protein, Blood 7.2 g/dL (6.4-8.2)
--- NOTE | 2024-03-28 03:46 | NUR ---
PT SUMMARY PT STATES "FEELING BETTER", PT IS STILL FALLING ASLEEP IN THE MIDDLE OF CONVERSATION. VBG RESULTS CAME BACK, DR. JENNINGS NOTIFIED, NEW ORDERS HAVE BEEN PUT INTO PLACE. NO OTHER INTERVENTIONS AT THIS TIME. PLAN OF CARE CONTINUED.
[2024-03-28] MEDS ORDERED: Aspirin 325 MG Tab PO ONE (06:00)
[2024-03-28] MEDS ORDERED: Heparin Sodium 1000 Units/ML 10ML MDV ONE (06:20)
[2024-03-28] MEDS ORDERED: NS 250 ML IV ONE (06:20)
[2024-03-28] MEDS ORDERED: NS 1,000 ML IV ONE (06:20)
[2024-03-28] MEDS ORDERED: Verapamil HCL 2.5 MG/ML 2ML Injection ONE (06:20)
[2024-03-28] MEDS ORDERED: Nitroglycerin 2 MG/20 ML BTL ONE (06:22)
[2024-03-28] MEDS ORDERED: FentaNYL Citrate 50 MCG/ML 2 ML Injection ONE (06:52)
[2024-03-28] MEDS ORDERED: Midazolam HCl 1MG / ML 2ML Vial ONE (06:52)
[2024-03-28] MEDS ORDERED: NS 500 ML IV ONE (06:52)
--- NOTE | 2024-03-28 09:00 | NUR ---
THIS RN ASSUMED CARE OF PT AT APPROX 0700, PT IN GUT DROPPER AT SHIFT CHANGE. PT ARRIVED BACK FROM GUT DROPPER VIA BED AT APPROX 0815. LETHARGIC BUT ABLE TO WAKE TO VERBAL STIMULI, ANSWER QUESTIONS APPROPRIATELY. VSS. R RADIAL SITE W/ TR BAND IN PLACE, 11CC IN BAND PER GUT DROPPER RN. RAC SITE W/ DRESSING IN PLACE, MINIMAL BLEEDING NOTED. R RADIAL PULSE PALPABLE, FINGERS WARM TO TOUCH. NO BLEEDING, BRUISING, OR HEMATOMA FORMATION UNDER TR BAND NOTED. ARM BOARD IN PLACE. PUREWICK IN PLACE AT THIS TIME DUE TO LETHARGY, PT EDUCATED ON USING COMMODE OR BATHROOM ONCE SEDATION WEARS OFF. SIGNIFICANT OTHER AT BEDSIDE, CALL LIGHT IN REACH.
--- NOTE | 2024-03-28 13:17 | NUR ---
Assumed care of patient: Pt drowsy but wakes to verbal stimulus. States "I just want to get some sleep". Pt with R wrist TR band in place. Removed 2 cc air with no bleeding, swelling, bruising noted. Pt currently denies pain. VSS. Pt has non-pitting edema throughout ABD and extrimities. Pure wick in place. LS with exp wheezing throughout, currently 90% on RA. Cont pulse ox in place. HR reg. BT positive. BLE wrapped in winsome wrap. Pulses palp. Call light in reach. WIll continue to monitor.
[2024-03-28 13:23] LABS: U Amphetamine Screen DETECTED; U Methamphetamine Screen DETECTED
[2024-03-28 13:24] LABS: U Barbituate Screen Not Detected; U Benzodiazapine Screen Not Detected; U Buprenorphine Screen Not Detected; U Cannabinoids Screen Not Detected; U Cocaine Screen Not Detected; U Methadone Screen Not Detected; U Opiates Screen DETECTED; U Oxycodone Screen Not Detected; U Phencyclidine Screen Not Detected
--- NOTE | 2024-03-28 14:04 | NUR ---
Update: Urine Tox results came back positive for meth and amphetamines. This RN and Carmen VENTILATING EXPERT went and talked with the patinet regarding results. Patient has been informed she is no longer allowed to have any visitors, as she has been in the hospital for 3 days and is still positive. Patient is tearful and upset, continuing to state, " I didn't take anything. My fiance brought me part of a [facility] house and I ate it, but that was it." Patient states she may want to leave. Staff attempted to call her fiance, the call did not go through. Nursing supervisor commissary production notifed of converstaion. Patient resting in bed, call light in reach.
--- NOTE | 2024-03-28 15:08 | NUR ---
UPDATE: Pt stated that she wanted to be transfered to a different hospital. Informed her that this was not likely to happen since we could care for her needs here. Pt states that she wants to leave. Informed her it would have to be against medical advice. Pt states that she understood this. Called physician and came and talked to patient. Pt was upset with not being able to have visitors r/t her positive tox screen. States that none of her visitors have brought her anything. Pt states that she thinks her positive tox screen is because of something we gave her here. Physician assured patient that we are very careful and that we would monitor any medications and treatments but that we are still unable to allow visitors. Pt has agreed to stay at this time.
[2024-03-28] MEDS ORDERED: Potassium Chloride 20 MEQ TabCR PO SCH (15:30)
[2024-03-28] MEDS ORDERED: Bumetanide 0.25 MG/ML 4ML ViaL IV SCH (15:30)
[2024-03-28 15:57] LABS: Bun/Creatinine Ratio 25.7 (12.0-20.0); Calcium, Blood 8.7 mg/dL (8.5-10.1); Creatinine, Blood 0.86 mg/dL (0.40-1.00); Magnesium, Blood 1.6 mg/dL (1.6-2.4); Potassium, Blood 3.4 mmol/L (3.5-5.5)
--- NOTE | 2024-03-28 16:45 | NUR ---
AMA: Patients significant other came to her room and is here to pick her up. Sig other began to yell and cuss at the staff. Secutiry was called to ask sig other to leave. Patient is upset and tearful because she wants to leave with him. Patient was assisted to get dressed, IV and telemetry removed. Patient went AMA, security escorted her to her boyfriend.
--- NOTE | 2024-03-28 17:58 | NUR ---
AMA: Pt left AMA, escorted out by security. IV removed and cath intact prior to leaving. Per other floor staff, Pt's sig other came to room and when he was told of the visitor restrictions he became belligerent, yelling and cussing at staff. Security was called. Sig other left on his own accord. As he was leaving Pt yelled that she wanted to go with him. TR band had been recovered, risks of leaving AMA had already been discussed. Pt chose to leave anyway. multi operation forming machine setter assisted with getting pt dressed and taking IV out. PHysician informed of pt's decision.
[2024-03-29 19:01] LABS: AMPHETAMINE,URN,QUANT 77 ng/mL; MDA,URN,QUANT <200 ng/mL; MDEA,URN,QUANT <200 ng/mL; MDMA,URN,QUANT <200 ng/mL; METHAMPHETAMINE,URN,QUANT 2045 ng/mL; PHENTERMINE,URN,QUANT <200 ng/mL
[2024-03-29 20:38] LABS: 6-ACETYLMORPHINE, URN, QUANT <10 ng/mL; CODEINE, URN, QUANT <20 ng/mL; HYDROCODONE, URN, QUANT 202 ng/mL; HYDROMORPHONE, URN, QUANT <20 ng/mL; MORPHINE, URN, QUANT <20 ng/mL; NORHYDROCODONE, URN, QUANT 74 ng/mL; NOROXYCODONE, URN, QUANT <20 ng/mL; NOROXYMORPHONE, URN, QUANT <20 ng/mL; OXYCODONE, URN, QUANT <20 ng/mL; OXYMORPHONE, URN, QUANT <20 ng/mL
== END 2024-03-28 17:17 | disposition left against medical advice (07) | DRG 286 ==
LOC: ER 12:52 → ERHOLD 18:17 → PCU 18:17
PROVIDERS: Emergency Medicine; Family Medicine; ADMIT Student in an Organized Health Care Education/Training Program
PROC: B2111ZZ Fluoroscopy of Multiple Coronary Arteries using Low Osmolar Contrast (ICD-10-PCS; principal; 2024-03-28)
PROC: 4A023N6 Measurement of Cardiac Sampling and Pressure, Right Heart, Percutaneous Approach (ICD-10-PCS; 2024-03-28)
DX: I11.0 Hypertensive heart disease with heart failure (principal); I50.23 Acute on chronic systolic (congestive) heart failure; Z68.42 Body mass index [BMI] 45.0-49.9, adult; I47.20 Ventricular tachycardia, unspecified; I42.0 Dilated cardiomyopathy; F15.10 Other stimulant abuse, uncomplicated; I27.20 Pulmonary hypertension, unspecified; E66.01 Morbid (severe) obesity due to excess calories; F17.210 Nicotine dependence, cigarettes, uncomplicated; R23.0 Cyanosis; J45.909 Unspecified asthma, uncomplicated; F32.A Depression, unspecified; F43.10 Post-traumatic stress disorder, unspecified; Z91.148 Patient's other noncompliance with medication regimen for other reason; F10.10 Alcohol abuse, uncomplicated; Z88.8 Allergy status to other drugs, medicaments and biological substances; Z79.899 Other long term (current) drug therapy; Z63.4 Disappearance and death of family member; Z86.711 Personal history of pulmonary embolism; Z98.51 Tubal ligation status; Z98.890 Other specified postprocedural states; Z53.29 Procedure and treatment not carried out because of patient's decision for other reasons
CPT/HCPCS: 36415; 71045; 71046; 76937; 80048; 80053; 80061; 82803; 83036; 83735; 83880; 84443; 84484; 85025; 93005; 93010; 93456; 94640; 94664; 94762; 99152; 99285-25; A9270; C1769; C1887; C1894; C8929; J1644; J1650; J2250; J2405; J3010; J3475; J7030; J7040; J7050; Q9957; Q9967

== ENCOUNTER 2024-07-18 23:37 | Inpatient (IN) | payer OTHER ==
[~2024-07-18] VITALS: Ht 149.9 cm; Wt 103.0 kg
[2024-07-19] VITALS (7 sets, daily range): BP systolic 122–140; BP diastolic 64–124
[2024-07-19] MEDS ORDERED: XARELTO20 M1 PO (00:03)
[2024-07-19 00:18] LABS: BASOPHILS ABSOLUTE AUTO 0.07 K/mm3 (0.00-0.23); BASOPHILS PERCENT AUTO 1 % (0-2); EOSINOPHILS ABSOLUTE AUTO 0.17 K/mm3 (0.00-0.68); EOSINOPHILS PERCENT AUTO 2 % (0-6); Hematocrit 35.6 % (33.0-51.0); Hemoglobin 11.1 g/dL (11.5-16.0); IMMATURE GRAN ABSOLUTE AUTO 0.04 K/mm3 (0.00-0.10); IMMATURE GRAN PERCENT AUTO 1 % (0-1); LYMPHOCYTES ABSOLUTE AUTO 0.54 K/mm3 (0.84-5.20); LYMPHOCYTES PERCENT AUTO 7 % (21-46); MONOCYTES ABSOLUTE AUTO 0.78 K/mm3 (0.16-1.47); MONOCYTES PERCENT AUTO 11 % (4-13); Mean Corpuscular HGB 27.1 pg (26.0-34.0); Mean Corpuscular HGB Conc 31.2 g/dL (31.5-36.5); Mean Corpuscular Volume 87 fL (80-100); Mean Platelet Volume 9.3 fL (9.1-12.4); NEUTROPHILS ABSOLUTE AUTO 5.78 K/mm3 (1.96-9.15); NEUTROPHILS PERCENT AUTO 78 % (41-73); NRBC ABSOLUTE 0.02 K/mm3 (0.00-0.02); NRBC Auto 0.3 /100 WBC (0.0-0.2); Platelet Count 436 K/mm3 (150-400); RDW Coefficient Variation 20.5 % (11.7-14.2); RDW Standard Deviation 63.9 fL (35.1-46.3); White Blood Cell Count 7.38 K/mm3 (4.00-11.30)
[2024-07-19 00:28] LABS: Albumin/Globulin Ratio 0.6 (0.8-1.8); Bilirubin, Total 4.6 mg/dL (0.1-1.0); Bun/Creatinine Ratio 38.4 (12.0-20.0); Calcium, Blood 8.8 mg/dL (8.5-10.1); Creatinine, Blood 0.57 mg/dL (0.40-1.00); Globulin, Blood 5.1 g/dL (2.2-4.0); Potassium, Blood 3.3 mmol/L (3.5-5.5); Total Protein, Blood 8.1 g/dL (6.4-8.2)
[2024-07-19] MEDS ORDERED: Furosemide 10 MG/ML 4ML Vial IV ONE ×2 (00:45→02:55)
[2024-07-19] MEDS ORDERED: Ketorolac Tromethamine 30mg Vial IV ONE (01:45)
[2024-07-19] MEDS ORDERED: Ipratropium/Albuterol SulF 2.5-0.5MG/3 ML Amp INH ONE (02:55)
[2024-07-19] MEDS ORDERED: Potassium Chl 20MEQ/Water100ML 100 ML IV SCH (02:55)
[2024-07-19] MEDS ORDERED: FLU VACC TS2024-25(6MOS UP)/PF 45 MCG/0.5 ML SYRINGE IM ONE (03:05)
[2024-07-19] MEDS ORDERED: Ondansetron HCl 2 MG / ML 2ML Vial IV PRN (03:05)
[2024-07-19 03:13] LABS: Base Excess Venous 5.9 mmol/L; PCO2 Venous 46.5 mmHg (38-42); pH Blood Venous 7.42 (7.34-7.37)
[2024-07-19 04:09] LABS: U Amphetamine Screen Not Detected; U Barbituate Screen Not Detected; U Benzodiazapine Screen Not Detected; U Buprenorphine Screen Not Detected; U Cannabinoids Screen Not Detected; U Cocaine Screen Not Detected; U Methadone Screen Not Detected; U Methamphetamine Screen Not Detected; U Opiates Screen Not Detected; U Oxycodone Screen Not Detected; U Phencyclidine Screen Not Detected
[2024-07-19 04:44] LABS: BASOPHILS ABSOLUTE AUTO 0.07 K/mm3 (0.00-0.23); BASOPHILS PERCENT AUTO 1 % (0-2); EOSINOPHILS ABSOLUTE AUTO 0.18 K/mm3 (0.00-0.68); EOSINOPHILS PERCENT AUTO 3 % (0-6); Hematocrit 33.6 % (33.0-51.0); Hemoglobin 10.5 g/dL (11.5-16.0); IMMATURE GRAN ABSOLUTE AUTO 0.05 K/mm3 (0.00-0.10); IMMATURE GRAN PERCENT AUTO 1 % (0-1); LYMPHOCYTES ABSOLUTE AUTO 0.58 K/mm3 (0.84-5.20); LYMPHOCYTES PERCENT AUTO 8 % (21-46); MONOCYTES ABSOLUTE AUTO 1.05 K/mm3 (0.16-1.47); MONOCYTES PERCENT AUTO 14 % (4-13); Mean Corpuscular HGB 27.6 pg (26.0-34.0); Mean Corpuscular HGB Conc 31.3 g/dL (31.5-36.5); Mean Corpuscular Volume 88 fL (80-100); Mean Platelet Volume 9.6 fL (9.1-12.4); NEUTROPHILS ABSOLUTE AUTO 5.37 K/mm3 (1.96-9.15); NEUTROPHILS PERCENT AUTO 74 % (41-73); NRBC ABSOLUTE 0.02 K/mm3 (0.00-0.02); NRBC Auto 0.3 /100 WBC (0.0-0.2); Platelet Count 415 K/mm3 (150-400); RDW Coefficient Variation 20.4 % (11.7-14.2); RDW Standard Deviation 64.8 fL (35.1-46.3); Red Blood Cell Count 3.81 M/mm3 (3.80-5.20)
[2024-07-19] MEDS ORDERED: NS 250 ML IV PRN (04:55)
[2024-07-19 05:09] LABS: Albumin, Blood 2.8 g/dL (3.4-5.0); Albumin/Globulin Ratio 0.6 (0.8-1.8); Bilirubin, Total 4.5 mg/dL (0.1-1.0); Bun/Creatinine Ratio 35.8 (12.0-20.0); Calcium, Blood 8.4 mg/dL (8.5-10.1); Creatinine, Blood 0.59 mg/dL (0.40-1.00); Globulin, Blood 4.9 g/dL (2.2-4.0); Potassium, Blood 3.2 mmol/L (3.5-5.5); Total Protein, Blood 7.7 g/dL (6.4-8.2)
[2024-07-19] MEDS ORDERED: Naloxone HCl 0.4MG / ML 1ML Vial IV ONE (05:20)
--- NOTE | 2024-07-19 05:35 | NUR ---
SPOKE WITH DR. DESIR. NOTIFIED THAT STAFF HAS THUS FAR BEEN UNABLE TO FIND LEFT SIDED PEDAL PULSE WITH DOPPLER AND THAT PT HAS WOUND ON RIGHT CALF THAT WE HAVE COVERED WITH MEPILEX. NO ORDERS REGARDING THIS FOR TIME BEING. AFTER ASSESSING PATIENT, THANG ORDERED ONE TIME DOSE OF NARCAN IV. ADMINISTERED, CONTINUING TO MONITOR.
--- NOTE | 2024-07-19 06:11 | NUR ---
SHIFT SUMMARY. PT ARRIVED ON UNIT @ ~0420. ON ARRIVAL WAS SLIGHTLY MORE LUCID AND WAS ABLE TO RESPOND TO VERBAL STIMULI. AT THAT TIME, WAS ABLE TO TELL ME HER NAME/ AND WHERE SHE WAS. SINCE THAT TIME, PT HAS BECOME LESS RESPONSIVE AND HAS ONLY ROUSED TO STERNAL RUBS AND WHEN ROUSED ONLY MAKES NOISES OPPOSED TO WORDS. MENTATION CONTINUES TO FLUCTUATE. AT THAT TIME, THANG WAS AT BEDSIDE TO ASSESS AND ORDERED OT DOSE OF NARCAN WHICH WAS ADMINISTERED. AMMONIA ALSO ORDERED AND SENT TO LAB. PT ON BIPAP SINCE ARRIVAL, MAINTAINING ADEQUATE SATURATION. ADMISSION PROCESS COMPLETED TO BEST OF ABILITY, PT UNABLE TO RESPOND TO QUESTIONS D/T MENTATION. PT HAS WOUND ON RIGHT CALF, NOTIFIED MEPILEX IN PLACE. THIS RN UNABLE TO FIND PEDAL PULSE ON LEFT SIDE WITH DOPPLER THANG NOTIFIED NO ORDERS AT THIS TIME. CAP REFILL >3 SECONDS IN BLE. URINE OUTPUT SLOW, PUREWICK IN PLACE. BLADDER SCAN REVEALED BLADDER VOLUME OF ~150 MLS. BED LOCKED IN LOWEST POSITION. CALL LIGHT LEFT WITHIN REACH. BED ALARM ACTIVE. CONTINUING TO MONITOR.
[2024-07-19] MEDS ORDERED: Albuterol 2.5 MG/3 ML VIAL INH PRN (08:40)
[2024-07-19] MEDS ORDERED: FentaNYL Citrate 50 MCG/ML 2 ML Injection IV PRN (08:45)
[2024-07-19] MEDS ORDERED: OxyCODONE HCL 5 MG TAB PO PRN (08:45)
[2024-07-19] MEDS ORDERED: Spironolactone 12.5 MG TAB PO SCH (09:00)
[2024-07-19] MEDS ORDERED: Furosemide 10 MG/ML 4ML Vial IV SCH ×2 (09:00)
[2024-07-19] MEDS ORDERED: Enoxaparin 40 MG/0.4 ML SYR SC SCH (09:00)
[2024-07-19] MEDS ORDERED: Benzonatate 100 MG Cap PO PRN (10:35)
--- NOTE | 2024-07-19 12:04 | NUR ---
MORNING SUMMARY THE PT IS A&OX4, ANXIOUS, BUT ABLE TO MAKE HER NEEDS KNOWN. THE PT STARTED THE MORNING ON THE BIPAP W/ AVAP SETTINGS. SHE WAS CHANGED TO 2L NC FOR SUPPORTIVE COMFORT, SP02 >93%. SHE COMPLAINS OF BURNING IN HER CHEST WITH COUGHING AND BREATHING. DR. GONSALES ORDERED PRN PAIN MEDICATIONS. PAIN MANAGED. CT PE STUDY PREFORMED, BILATERAL VENOUS DUPLEX PREFORMED, AND AN ECHO WAS ORDERED. THE PT HAS HAD A BELL BLOOD TINGED PRODUCTIVE COUGH. TESSLON PEARLS STARTED, PT REPORTS IMPROVEMENT WITH COUGH. ON TELE SHE HAS BEEN SR 80'S-90'S W/ BBB AND PROLONGED QTC 0.54. BP STABLE. HER DIURETICS HAVE BEEN INCREASED AND A PURWICK IS SET UP TO SUCTION TO HELP BETTER MONITOR I&O'S. THE PT IS HAVING GENE COLORED OUTPUT. PURWICK WAS CHANGED THIS SHIFT. SHE NOTEABLY DOES NOT HAVE A LEFT PEDAL PULSE BUT TIBAL WAS LOCATED WITH THE DOPPLER. DR. GONSALES AWARE, WAITING ON VENOUS DUPLEX RESULTS AT THIS TIME. DR. AVILA WAS CONSULTED ON THE PT AND SAW HER THIS MORNING. HE WANTS THE PT TO WEAR THE AVAP MACHINE ANYTIME SHE IS SLEEPING. THE PT HAS A WOUND ON OF HER RIGHT LEG. IT WAS CHANGED PER WOUND CARE ORDERS. SEE NOTES FOR ANY UPDATES.
[2024-07-19] MEDS ORDERED: FARXIGA10 MG PO (12:30)
--- NOTE | 2024-07-19 17:27 | NUR ---
"Spiritual Care | Pt./Nurse Request Pt. is awake in bed and welcomes my visit. Pt. is pleasant but then as a life review is facilitated, Pt. verbalized some of her losses including her son. Matters of her broken family are considered. Pt. displayed evidence of trust, emgagement and awareness. During the visit we celebrated her 30+ days of her sobriety. Plans of care are considered. Prayed with the Pt. Pt. verbalized gratitude for the spiritual care visit."
--- NOTE | 2024-07-19 17:41 | NUR ---
END OF SHIFT SUMMARY NO CHANGES NOTED SINCE MORNING SUMMARY. SEE NOTES FOR UPDATES.
[2024-07-19] MEDS ORDERED: Rivaroxaban 10 MG Tab PO SCH (18:00)
--- NOTE | 2024-07-19 22:00 | NUR ---
ASSUMPTION OF CARE THIS RN ASSUMED CARE OF PATIENT AT 1900. PT A&O X4. ANXIOUS. ABLE TO MAKE NEEDS KNOWN. ON 2L VIA NC. PLACED ON CPAP FOR SLEEP WITH 3L BLEED IN. BP STABLE. SR WITH BBB ON MONITOR, RUN OF BUNDLE FLIP NOTED BY LICENSED PSYCHOLOGIST MANAGER JIMMIE. OTHER VSS. MD AWARE OF NO LEFT SIDED PEDAL PULSE. TIBIAL AND RT PEDAL PULSE FOUND WITH DOPPLER. PUREWICK IN PLACE. PT ABLE TO REPOSITION SELF IN BED. BED IN LOWEST POSITION AND CALL LIGHT WITHIN REACH.
[2024-07-20] VITALS (7 sets, daily range): BP systolic 120–146; BP diastolic 90–100
[2024-07-20 04:23] LABS: BASOPHILS ABSOLUTE AUTO 0.09 K/mm3 (0.00-0.23); BASOPHILS PERCENT AUTO 1 % (0-2); EOSINOPHILS ABSOLUTE AUTO 0.28 K/mm3 (0.00-0.68); EOSINOPHILS PERCENT AUTO 4 % (0-6); Hematocrit 36.6 % (33.0-51.0); Hemoglobin 11.1 g/dL (11.5-16.0); IMMATURE GRAN ABSOLUTE AUTO 0.05 K/mm3 (0.00-0.10); IMMATURE GRAN PERCENT AUTO 1 % (0-1); LYMPHOCYTES ABSOLUTE AUTO 0.53 K/mm3 (0.84-5.20); LYMPHOCYTES PERCENT AUTO 7 % (21-46); MONOCYTES ABSOLUTE AUTO 0.76 K/mm3 (0.16-1.47); MONOCYTES PERCENT AUTO 10 % (4-13); Mean Corpuscular HGB 27.3 pg (26.0-34.0); Mean Corpuscular HGB Conc 30.3 g/dL (31.5-36.5); Mean Corpuscular Volume 90 fL (80-100); Mean Platelet Volume 9.5 fL (9.1-12.4); NEUTROPHILS ABSOLUTE AUTO 6.28 K/mm3 (1.96-9.15); NEUTROPHILS PERCENT AUTO 79 % (41-73); NRBC ABSOLUTE 0.02 K/mm3 (0.00-0.02); NRBC Auto 0.3 /100 WBC (0.0-0.2); Platelet Count 427 K/mm3 (150-400); RDW Coefficient Variation 20.5 % (11.7-14.2); RDW Standard Deviation 67.5 fL (35.1-46.3); Red Blood Cell Count 4.06 M/mm3 (3.80-5.20); White Blood Cell Count 7.99 K/mm3 (4.00-11.30)
[2024-07-20 04:46] LABS: Albumin, Blood 2.8 g/dL (3.4-5.0); Albumin/Globulin Ratio 0.6 (0.8-1.8); Bilirubin, Total 4.2 mg/dL (0.1-1.0); Bun/Creatinine Ratio 30.5 (12.0-20.0); Calcium, Blood 8.5 mg/dL (8.5-10.1); Creatinine, Blood 0.75 mg/dL (0.40-1.00); Total Protein, Blood 7.8 g/dL (6.4-8.2)
--- NOTE | 2024-07-20 05:19 | NUR ---
SHIFT SUMMARY SEE PREVIOUS NOTE. PT CONTINUES TO BE ON 2L VIA NC. BP STABLE. SR BBB ON MONITOR. EMAIL MARKETING EXECUTIVE NOTED 7 BEAT RUN OF VTACH. ABLE TO MAKE NEEDS KNOWN. PT ABLE TO REPOSITION SELF IN BED. PUREWICK IN PLACE FOR OCCASIONAL INCONTINENCE AND FOR ACCURATE I'S/O'S. BED IN LOWEST POSITION AND CALL LIGHT WITHIN REACH.
[2024-07-20] MEDS ORDERED: Furosemide 10 MG/ML 4ML Vial IV SCH (09:00)
--- NOTE | 2024-07-20 17:22 | NUR ---
END OF SHIFT SUMMARY THE PT IS A&OX4, 1P SBA FOR TX, ANDHAS BEEN UP IN THE CHAIR MAJORITY OF THE DAY. SHE HAS BEEN SR 80'S-100'S ON TELE AND BP HAS REMAINED STABLE. SHE HAS BEEN ON 1L NC W/ SP02 >93%. PT DENIES ANY SOB, BUT DOES HAVE SOME DYSPNEA WITH EXCERTION. THE PT DOES HAVE THE BIPAP IN HER ROOM FOR WHEN SHE SLEEPS. PER PULM, THE PT NEEDS TO BE WEARING HER BIPAP WHEN NAPPING OR SLEEPING. THE PT DOES HAVE SOME ANXIETY AND SHE HAS BEEN COLORING TO HELP MANAGE IT. IMPROVEMENTS NOTED. SHE NO LNGER IS WEARING A PURWICK AND HAS BEEN GETTING UP TO THE BSC W/ 1P ASSIST. HER DIURETICS WERE INCREASED AND HER OUTPUT HAS IMPROVED. THE WOUND ON HER RIGHT LEG WAS CLEANED AND REDRESSED THIS SHIFT. NO ACUTE EVENTS. SEE NOTES FOR UPDATES.
[2024-07-21 00:48] VITALS: BP 137/98
--- NOTE | 2024-07-21 01:11 | NUR ---
PT SHOWERED AND BACK IN BED, WOUND CARE PERFORMED, MEPILEX IN PLACE. PT COMPLAINING OF CHEST PAIN THAT SHE SAYS HAS BEEN HAPPENING OFTEN SINCE ADMISSION DUE TO COUGHING. PT REPORTED HEMOPTYSIS AND STATES THAT THIS HAS BEEN HAPPENING INTERMITTENTLY WHEN SHE HAS ONE OF HER "COUGHING FITS" PT MEDICATED PER EMAR. MONO RED BLOOD IN SUCTION CANNISTER. PER PT REQUEST, MOISTERIZER APPLIED TO LEGS AND FEET. CLEAN, NEW PUREWICK PLACED AND DRAINING TO SUCITION.
[2024-07-21 04:13] VITALS: BP 134/92
[2024-07-21 04:54] LABS: BASOPHILS ABSOLUTE AUTO 0.07 K/mm3 (0.00-0.23); BASOPHILS PERCENT AUTO 1 % (0-2); EOSINOPHILS ABSOLUTE AUTO 0.16 K/mm3 (0.00-0.68); EOSINOPHILS PERCENT AUTO 2 % (0-6); Hematocrit 35.8 % (33.0-51.0); Hemoglobin 10.9 g/dL (11.5-16.0); IMMATURE GRAN ABSOLUTE AUTO 0.06 K/mm3 (0.00-0.10); IMMATURE GRAN PERCENT AUTO 1 % (0-1); LYMPHOCYTES ABSOLUTE AUTO 0.43 K/mm3 (0.84-5.20); LYMPHOCYTES PERCENT AUTO 6 % (21-46); MONOCYTES ABSOLUTE AUTO 0.48 K/mm3 (0.16-1.47); MONOCYTES PERCENT AUTO 6 % (4-13); Mean Corpuscular HGB 26.9 pg (26.0-34.0); Mean Corpuscular HGB Conc 30.4 g/dL (31.5-36.5); Mean Corpuscular Volume 88 fL (80-100); Mean Platelet Volume 9.3 fL (9.1-12.4); NEUTROPHILS ABSOLUTE AUTO 6.57 K/mm3 (1.96-9.15); NEUTROPHILS PERCENT AUTO 85 % (41-73); NRBC ABSOLUTE 0.02 K/mm3 (0.00-0.02); NRBC Auto 0.3 /100 WBC (0.0-0.2); Platelet Count 437 K/mm3 (150-400); RDW Coefficient Variation 20.1 % (11.7-14.2); RDW Standard Deviation 64.5 fL (35.1-46.3); Red Blood Cell Count 4.05 M/mm3 (3.80-5.20); White Blood Cell Count 7.77 K/mm3 (4.00-11.30)
[2024-07-21 05:16] LABS: Albumin/Globulin Ratio 0.6 (0.8-1.8); Bun/Creatinine Ratio 36.1 (12.0-20.0); Calcium, Blood 8.9 mg/dL (8.5-10.1); Creatinine, Blood 0.67 mg/dL (0.40-1.00); Potassium, Blood 3.8 mmol/L (3.5-5.5)
--- NOTE | 2024-07-21 06:25 | NUR ---
SHIFT SUMMARY PT REMAINED A/OX4 T/O SHIFT. SINUS TACH 110'S. PT REPORTED CHEST PAIN THAT HAS BEEN AFFECTING HER INTERMITTENTLY SINCE ADMISSION, STATES DUE TO COUGHING. MEDICATED PER EMAR. PT EXPERIENCED INTERMITTENT BOUTS OF ANXIETY T/O SHIFT EXPRESSING CONCERN ABOUT LIVING SITUATION, FAMILY DYNAMICS, ETC. ON 1L NC WHILE AWAKE, SATS ABOVE 95%, BIPAP USED WHILE SLEEPING. SR, BBB 80'S-110'S, RADIAL PULSES STRONG, PEDAL PULSES ONLY APPARENT WITH DOPPLER. PT IS MODERATELY EDEMATOUS IN ALL EXTREMITIES. [address]. WOUND DRESSING ON R CALF REPLACED AFTER SHOWER WITH MEPILEX. DRESSING IS C/D/I. PT AMBULATING IN ROOM WITH 1P SBA, USING BEDSIDE COMMODE OR TOILET. PT REPOSITIONING SELF IN BED. NO ACUTE EVENTS THIS SHIFT.
[2024-07-21 07:20] VITALS: BP 132/95
[2024-07-21] MEDS ORDERED: Guaifenesin/Dextromethorphan Syrup 5 ML UDC PO PRN (08:15)
[2024-07-21 11:22] VITALS: BP 118/82
[2024-07-21 15:53] VITALS: BP 127/80
[2024-07-21] MEDS ORDERED: Calcium Carbonate 500 MG Tab Chew PO PRN (17:55)
--- NOTE | 2024-07-21 17:55 | NUR ---
SHIFT SUMMARY THE PT IS A&OX4, AND IS ABLE TO MAKE HER NEEDS KNOWN. PT IS A 1P ASSIST FOR TX. SHE HAS BEEN IN THE CHAIR MAJORITY OF THE SHIFT. HER ANXIETY HAS BEEN HIGHER TODAY BECAUSE SHE WAS UNABLE TO GET AHOLD OF HER MOM OR . THIS RN WAS ABLE TO CONNECT THE PT WITH HER MOM AND THE ANXIETY HAS BEEN DECREASED. ON TELE THE PT IS SR 80'S-90'S W/ BBB AND PVC'S BP STABLE. SHE HAS BEEN BETWEEN RA AND 2L NC FOR COMFORT. SHE WEARS THE BIPAP WHILE ASLEEP. SHE IS NOW MEDICAL WITH TELE. SHE CONTINUES TO COMPLAIN OF BURNING CHEST PAIN AND HAS BEEN MEDICATED PER EMAR. WORSEN WHEN COUGHING. NO ACUTE EVENTS. SEE NOTES FOR UPDATES.
[2024-07-21 20:39] VITALS: BP 133/91
--- NOTE | 2024-07-21 21:09 | NUR ---
ASSUMPTION OF CARE ASSUMED PT'S CARE AT 1900,BEDSIDE REPORT COMPLETED.PT SITTING UP IN CHAIR.PLAN OF CARE REVIEWED.WOUND DRESSING CDI,PT ENCOURAGED TO ELEVATE BLE TO REDUCE SWELLING.PT PREPARED FOR SHOWER PER PT'S REQUEST.PT REQUESTED FOR COUGH SYRUP WITH MED PASS.DENIES FURTHER NEEDS.WILL CONTINUE TO MONITOR.
[2024-07-22 00:42] VITALS: BP 121/87
[2024-07-22 04:03] VITALS: BP 108/66
[2024-07-22 05:41] LABS: BASOPHILS ABSOLUTE AUTO 0.07 K/mm3 (0.00-0.23); BASOPHILS PERCENT AUTO 1 % (0-2); EOSINOPHILS ABSOLUTE AUTO 0.17 K/mm3 (0.00-0.68); EOSINOPHILS PERCENT AUTO 3 % (0-6); Hematocrit 34.4 % (33.0-51.0); Hemoglobin 10.8 g/dL (11.5-16.0); IMMATURE GRAN ABSOLUTE AUTO 0.04 K/mm3 (0.00-0.10); IMMATURE GRAN PERCENT AUTO 1 % (0-1); LYMPHOCYTES ABSOLUTE AUTO 0.48 K/mm3 (0.84-5.20); LYMPHOCYTES PERCENT AUTO 7 % (21-46); MONOCYTES ABSOLUTE AUTO 0.57 K/mm3 (0.16-1.47); MONOCYTES PERCENT AUTO 9 % (4-13); Mean Corpuscular HGB 27.6 pg (26.0-34.0); Mean Corpuscular HGB Conc 31.4 g/dL (31.5-36.5); Mean Corpuscular Volume 88 fL (80-100); Mean Platelet Volume 9.7 fL (9.1-12.4); NEUTROPHILS ABSOLUTE AUTO 5.41 K/mm3 (1.96-9.15); NEUTROPHILS PERCENT AUTO 80 % (41-73); Platelet Count 421 K/mm3 (150-400); RDW Coefficient Variation 19.7 % (11.7-14.2); RDW Standard Deviation 62.8 fL (35.1-46.3); Red Blood Cell Count 3.92 M/mm3 (3.80-5.20); White Blood Cell Count 6.74 K/mm3 (4.00-11.30)
--- NOTE | 2024-07-22 06:27 | NUR ---
PT SLEPT ON/OFF THROUGHOUT THE NIGHT.USED THE BIPAP FOR 4 HOURS AND 2L OF OXYGEN VIA NC FOR THE REST OF THE NIGHT.MAINTAINED OXYGEN SATURATION >94%,NO C/O SOB.PT AWAKE AT THIS TIME,CALL LIGHT AND PT'S ITEMS WITHIN REACH.WILL GIVE REPORT TO DAYSHIFT NURSE FOR CONTINUITY OF CARE.
[2024-07-22 06:39] LABS: Albumin, Blood 2.7 g/dL (3.4-5.0); Albumin/Globulin Ratio 0.6 (0.8-1.8); Bilirubin, Total 3.9 mg/dL (0.1-1.0); Bun/Creatinine Ratio 32.8 (12.0-20.0); Calcium, Blood 8.9 mg/dL (8.5-10.1); Creatinine, Blood 0.67 mg/dL (0.40-1.00); Globulin, Blood 4.9 g/dL (2.2-4.0); Potassium, Blood 3.4 mmol/L (3.5-5.5); Total Protein, Blood 7.6 g/dL (6.4-8.2)
[2024-07-22 08:04] VITALS: BP 119/83
[2024-07-22] MEDS ORDERED: Potassium Chloride 20 MEQ TabCR PO ONE (10:45)
[2024-07-22 15:49] VITALS: BP 108/90
--- NOTE | 2024-07-22 18:31 | NUR ---
SHIFT SUMMARY; ASSUMED CARE AT 0700. A/A/OX4. INDEPENDANT WITH TRANSFER TO COMMODE AND CHAIR. SITS IN RECLINER ALL OF SHIFT, REPOSITIONS SELF. PLEASANT AND COOPERATIVE WITH CARE. 2L PRN VIA NC TO MAINTAIN SATS .92%. CARDIAC CONSULT TODAY. BLE EDEMA WITH REDNESS FROM THIGHS TO FEET. PEDAL PULSES PALPABLE. MEPILEX TO WOUND ON RIGHT CALF, DRY AND INTACT. DRY COUGH T/O SHIFT, STATES CHEST HURTS FROM COUGHING. VSS, WILL CONTINUE TO MONITOR AND TREAT UNTIL REPORT GIVEN TO NOC SHIFT RN.
[2024-07-22 20:41] VITALS: BP 128/105
[2024-07-22] MEDS ORDERED: Metoprolol Succinate 25 MG TABCR PO SCH (21:00)
--- NOTE | 2024-07-23 02:06 | NUR ---
ASSUMPTION OF CARE. ASSUMED PT'S CARE AT 1900,BEDSIDE REPORT COMPLETED WITH PREVIOUS NURSE.PT SITTING UP IN CHAIR.PLAN OF CARE REVIEWED.PT ON RA,OXYGEN SATURARION >91%.PT DENIES PAIN,DENIES NEEDS.CALL LIGHT AND PT'S ITEMS WITHIN REACH.WILL CONTINUE TO MONITOR.
[2024-07-23 04:22] VITALS: BP 116/90
--- NOTE | 2024-07-23 06:56 | NUR ---
PT HAS BEEN AWAKE MOST OF THE NIGHT WATCHING MOVIES ON HER PHONE.PRN PAIN MEDS GIVEN PER PTS REQUEST.PT APPEARS TO BE FALLING ASLEEP THIS MORNING.CALL LIGHT AND PT'S ITEMS WITHIN REACH.WILL GIVE REPORT TO DAYSHIFT NURSE FOR CONTINUITY OF CARE.
[2024-07-23 08:10] VITALS: BP 114/86
[2024-07-23] MEDS ORDERED: Empagliflozin 10 MG TAB PO SCH (09:00)
--- NOTE | 2024-07-23 13:39 | NUR ---
Pt. is awake and sitting up inwa chair when she welcomes my visit. Pt. is pleasant, but displays evidence of being tired. Facilittate a review and get an update of the Pts. perceived plan of care. Consider matters of family and how the Pt. is soon to have a birthday. Pt. is unsettled about her water weight. Listen with empathy and a calming presence. Prayed for the Pt. Pt. verbalized gratitude for the spiritual care visit, and then Pt. requested this air carrier maintenance inspector let a nurse know she would like to take a shower.
[2024-07-23 16:58] VITALS: BP 114/89
--- NOTE | 2024-07-23 18:19 | NUR ---
SHIFT SUMMARY; ASSUMED CARE AT 0700. A/A/OX4 SITTING IN RECLINER CHAIR. ANXIOUS AND TEARY AT TIMES DURING SHIFT BUT QUICKLY RECOVERS. BLE CELLULITIS WITH REDNESS AND DEEP EDEMA FROM UPPER THIGHS TO FEET. PEDAL PULSES FAINT BILATERALLY. INDEPENDANT TO COMMODE AND USES CALL LIGHT. SHOWER TODAY AND LINEN CHANGE. COOPERATIVE WITH CARE, 2L FLUID RESTRICTION IN PLACE, WILL CONTINUE TO MONITOR AND TREAT UNTIL REPORT GIVEN TO NOC SHIFT RN FOR CHANGE OF SHIFT.
[2024-07-23 20:31] VITALS: BP 125/50
[2024-07-23] MEDS ORDERED: Metoprolol Succinate 25 MG TABCR PO SCH (21:00)
[2024-07-24] VITALS (7 sets, daily range): BP systolic 108–127; BP diastolic 82–91
[2024-07-24 04:18] LABS: BASOPHILS ABSOLUTE AUTO 0.08 K/mm3 (0.00-0.23); BASOPHILS PERCENT AUTO 1 % (0-2); EOSINOPHILS ABSOLUTE AUTO 0.18 K/mm3 (0.00-0.68); EOSINOPHILS PERCENT AUTO 3 % (0-6); Hematocrit 37.2 % (33.0-51.0); Hemoglobin 11.2 g/dL (11.5-16.0); IMMATURE GRAN ABSOLUTE AUTO 0.04 K/mm3 (0.00-0.10); IMMATURE GRAN PERCENT AUTO 1 % (0-1); LYMPHOCYTES ABSOLUTE AUTO 0.56 K/mm3 (0.84-5.20); LYMPHOCYTES PERCENT AUTO 8 % (21-46); MONOCYTES ABSOLUTE AUTO 0.63 K/mm3 (0.16-1.47); MONOCYTES PERCENT AUTO 9 % (4-13); Mean Corpuscular HGB 26.8 pg (26.0-34.0); Mean Corpuscular HGB Conc 30.1 g/dL (31.5-36.5); Mean Corpuscular Volume 89 fL (80-100); Mean Platelet Volume 9.3 fL (9.1-12.4); NEUTROPHILS ABSOLUTE AUTO 5.18 K/mm3 (1.96-9.15); NEUTROPHILS PERCENT AUTO 78 % (41-73); Platelet Count 446 K/mm3 (150-400); RDW Coefficient Variation 19.5 % (11.7-14.2); RDW Standard Deviation 63.6 fL (35.1-46.3); Red Blood Cell Count 4.18 M/mm3 (3.80-5.20); White Blood Cell Count 6.67 K/mm3 (4.00-11.30)
[2024-07-24 04:39] LABS: Albumin, Blood 2.9 g/dL (3.4-5.0); Albumin/Globulin Ratio 0.6 (0.8-1.8); Bun/Creatinine Ratio 32.8 (12.0-20.0); Calcium, Blood 8.9 mg/dL (8.5-10.1); Creatinine, Blood 0.76 mg/dL (0.40-1.00); Globulin, Blood 4.9 g/dL (2.2-4.0); Potassium, Blood 3.5 mmol/L (3.5-5.5); Total Protein, Blood 7.8 g/dL (6.4-8.2)
--- NOTE | 2024-07-24 05:49 | NUR ---
SHIFT SUMMARY PATIENT ALERT, ORIENTED x4, ABLE TO MAKE NEEDS KNOWN TO STAFF. OCCASIONAL LABILE MOOD. BP STABLE. ON TELE, SR. ON 2L NC WITH SPO2 >90%. DYSPNEA WITH ACTIVITY BUT PATIENT RECOVERS WITHOUT O2 TITRATION. PATIENT INDEPENDENT TO BEDSIDE COMMODE, ADEQUATE OUTPUT. SHOWER AND WOUND CARE COMPLETED THIS SHIFT. NO OTHER CHANGES THIS SHIFT, WILL REPORT TO DAY SHIFT RN.
[2024-07-24] MEDS ORDERED: Metoprolol Succinate 25 MG TABCR PO SCH (09:00)
[2024-07-24] MEDS ORDERED: Metolazone 2.5 MG Tab PO SCH (09:00)
[2024-07-24] MEDS ORDERED: Digoxin 0.25 MG/ML 2ML Amp IV SCH (10:30)
[2024-07-24] MEDS ORDERED: Potassium Chloride 20 MEQ/15 ML UDC PO SCH (17:00)
--- NOTE | 2024-07-24 17:50 | NUR ---
SHIFT SUMMARY; ASSUMED CARE AT 0700. A/A/OX4 DURING SHIFT. 2L 02 VIA NC, AT TIMES TAKES O2 OFF AND DESATS TO MID 80'S, ENCOURAGED CONTINUED USE. RHYTHM CHANGE IN AM TO AFIB/FLUTTER. TELE ASSESSED BY CARDIOLOGY, MED CHANGES MADE. DIG LOADED PER EMAR. CURRENT HR 90-100, DENIES CP. BLOOD PRESSURE STABLE. SITS IN RECLINER FOR SHIFT, UP TO BEDSIDE COMMODE INDEPENDANTLY. 2L FLUID RESTRICTION. BLE EDEMA SIMILAR TO PREVIOUS SHIFT BUT ABDOMEN SOFTER. STATES CHANGED FROM MEDTELE TO PCU. COOPERATIVE WITH CARE, WILL CONTINUE TO MONITOR AND TREAT UNTIL REPORT GIVEN TO ONCOMING NOC RN.
[2024-07-25 03:22] LABS: BASOPHILS PERCENT AUTO 1 % (0-2); EOSINOPHILS ABSOLUTE AUTO 0.18 K/mm3 (0.00-0.68); EOSINOPHILS PERCENT AUTO 3 % (0-6); Hematocrit 35.4 % (33.0-51.0); Hemoglobin 11.2 g/dL (11.5-16.0); IMMATURE GRAN ABSOLUTE AUTO 0.04 K/mm3 (0.00-0.10); IMMATURE GRAN PERCENT AUTO 1 % (0-1); LYMPHOCYTES ABSOLUTE AUTO 0.53 K/mm3 (0.84-5.20); LYMPHOCYTES PERCENT AUTO 8 % (21-46); MONOCYTES PERCENT AUTO 10 % (4-13); Mean Corpuscular HGB 27.5 pg (26.0-34.0); Mean Corpuscular HGB Conc 31.6 g/dL (31.5-36.5); Mean Corpuscular Volume 87 fL (80-100); NEUTROPHILS ABSOLUTE AUTO 5.35 K/mm3 (1.96-9.15); NEUTROPHILS PERCENT AUTO 78 % (41-73); Platelet Count 448 K/mm3 (150-400); RDW Coefficient Variation 19.6 % (11.7-14.2); RDW Standard Deviation 61.6 fL (35.1-46.3); Red Blood Cell Count 4.07 M/mm3 (3.80-5.20)
--- NOTE | 2024-07-25 03:29 | NUR ---
break nurse note. while giving primary rn lunch, notified by tele that pt was having st elevation on tele. spoke with dr. perez who ordered ekg and went to speak with patient. after speaking with patient, dr. perez directed to look at ekg when finished and order troponin draws if ekg indicated need. ekg completed and left with charge accounts audit clerk for review.
[2024-07-25 03:40] LABS: Albumin, Blood 2.7 g/dL (3.4-5.0); Albumin/Globulin Ratio 0.6 (0.8-1.8); Bilirubin, Total 2.9 mg/dL (0.1-1.0); Bun/Creatinine Ratio 36.3 (12.0-20.0); Creatinine, Blood 0.88 mg/dL (0.40-1.00); Globulin, Blood 4.9 g/dL (2.2-4.0); Potassium, Blood 3.2 mmol/L (3.5-5.5); Total Protein, Blood 7.6 g/dL (6.4-8.2)
[2024-07-25 03:46] VITALS: BP 105/74
--- NOTE | 2024-07-25 05:39 | NUR ---
SHIFT SUMMARY PATIENT ALERT, ORIENTED x4. ANXIOUS AT TIMES BUT ABLE TO MAKE NEEDS KNOWN TO STAFF. BP STABLE. NOTED ST ELEVATION ON TELE, EKG DONE, TROPONIN NEGATIVE, PATIENT DENIED NEW CHEST DISCOMFORT. PATIENT DELCINING TO WEAR CPAP, OCCASIONALLY NOT WEARING OXYGEN. DESATS AND DYSPNEIC WITH ACTIVITY. SPO2 LOW 90s DURING THE NIGHT. TELE READING AFLUTTER DURING THE NIGHT. PATIENT UP IN CHAIR ENTIRE SHIFT. AMBULATING INTO BATHROOM SBA TO SHOWER. PATIENT USING BEDSIDE COMMODE INDEPENDENTLY. NO OTHER CHANGES DURING THE NIGHT, WILL REPORT TO DAY SHIFT RN.
[2024-07-25 07:22] VITALS: BP 151/125
[2024-07-25] MEDS ORDERED: Potassium Chloride 20 MEQ/15 ML UDC PO SCH (08:30)
[2024-07-25] MEDS ORDERED: Digoxin 0.125 MG Tab PO SCH (09:00)
[2024-07-25 09:14] VITALS: BP 105/77
--- NOTE | 2024-07-25 11:44 | NUR ---
am note this rn assumed care at 0700. vital signs stable. tele aflutter 70-80s. spo2 >90% on 2l nc, which has been titrated to 4l nc due to sitting in the mid 80s and spo2 >90% on 4l nc. patient is alert and oriented x4. neuro is intact. perrla. patient is able to make needs known and uses call ligt appropriately. patient denies pain, chest pain/pressure or shortness of breath. see shift assessment for further detials,. patient tearful and discussing end of life and inquiring about hospice. this rn discussed with the patient and listened to patient concerns and goals. this rn updated md mauro whom during rounding discussed this with the patient and this rn called palliative care nurse to come see the patient.
--- NOTE | 2024-07-25 12:01 | NUR ---
update palliative care nurse in room discussing plan and goals with the patient
[2024-07-25 13:05] VITALS: BP 126/92
--- NOTE | 2024-07-25 13:25 | NUR ---
PALLIATIVE CARE VISIT: SPOKE TO PT IN HER ROOM. PT IS AGREEABLE TO DISCUSS HOSPICE SERVICES. DISCUSSED GOALS OF CARE AND PT AGREES SHE NO LONGER WANTS TO COME TO THE HOSPITAL FOR TREATMENT. SHE STATES "I AM DYING AND I DON'T WANT TO PROLONG IT ANY LONGER". PT STATES SHE HAS BEEN IN AND OUT OF THE HOSPITAL FOR SEVERAL MONTHS. SHE WAS AT [facility] FOR A MONTH LAST MONTH AND ONLY LASTED TWO WEEKS AT HOME BEFORE SHE HAD TO COME TO [facility] AGAIN FOR TREATMENT. PT STATES SHE CURRENTLY LIVES IN A CAR WITH HER SIGNIFICANT OTHER BEHIND HIS BOSSES PROPERTY AND HAS ACCESS TO ELECTRICITY, BATHROOM AND LAUNDRY FACILITY. PT STATES SHE HAS PORTABLE O2 TANK WITH 2 RECHARGEABLE BATTERIES AND THAT IS WHAT SHE USES FOR O2 THERAPY. PT REPORTS SHE HAD A APPOINTMENT WITH DIPTI SEQUEIRA WITH [facility] YESTERDAY TO WORK ON HOUSING BUT SHE MISSED THE APPOINTMENT DUE TO HER ILLNESS. PT WANTS TO RECONNECT WITH HER. PT STATES SHE HAS NO PREFERENCE IN HOSPICE AGENCY ACCEPT SHE WILL LEAVE THE HOSPITAL TODAY EITHER WAY AND WOULD WANT SERVICES CONNECTED SOON POSSIBLE. SHE AGREES SHE WILL SIGN WITH FIRST AGENCY TO ADMIT HER. PT STATES SHE HAS A LOCK BOX SHE CAN LOCK HER MEDICATIONS IN. SHE STATES SHE IS NOT WORRIED ABOUT MEDICATIONS GETTING STOLEN. PT STATES SHE JUST WANTS TO BE CLOSE TO FAMILY NOW. CALL PLACED TO [facility] AND THEY AGREE THEY CAN GET HER ON SERVICE TODAY. UPDATED CM AND PRIMARY RN WHO STATED SHE WOULD CALL DR. GARCIA. JIE FRAME CHANGER ALSO UPDATED.
[2024-07-25] MEDS ORDERED: CORLANOR5 MG PO (14:36)
[2024-07-25] MEDS ORDERED: DIGOX125 MC1 PO (14:36)
[2024-07-25] MEDS ORDERED: METO2.5 PO (14:37)
[2024-07-25] MEDS ORDERED: POTCHL20ER PO (14:38)
[2024-07-25] MEDS ORDERED: METO25ER PO (14:38)
--- NOTE | 2024-07-25 15:40 | NUR ---
"Spiritual Care Visit | Nurse Request Pt. is awake and sitting up in a chair when she welcomes my visit. This dye weigher helper had been informed by Palliative Care that she had made a decision to go home on hospice. This dye weigher helper sought to identify how the Pt. was coping with her decision. Pt. verbalized that she was responsible for her condition, and that she would rather be at home than in a hospital or fci. With theraputic listening, and pastoral care this dye weigher helper sought to encourage the Pt. with her brave decision. Prayed with the Pt. Pt. verbalized gratitude for the spiritual care visit."
[2024-07-25 16:46] VITALS: BP 112/75
--- NOTE | 2024-07-25 16:56 | NUR ---
DISCHARGE NOTE Doug RN, ronnie, went over discharge instructions - follow up appointment with pcp, new mediations and when to take medications, to [employer] new medications from [facility], and heart failure education. patient provided with printed hand outs for above information. This rn went over hospice, heart failure education and medications to take and importance of compliance with oxygen. patient verbalized understanding. patient had home oxygen concentrator that is portable brought in. the sayra oxygen concentrator was not charged and was plugged in while going over education. upon leaving it was still not charged enough, but patient did not want to wait due to [facility] being here and waiting with a taxi to go home. this rn educated on the importance on being compliant with wearing oxygen at all times and the risks that come with not wearing including resiratory distress and . the patient stated " feeling comfortable" going home despite having oxygen. patient left with all belongings and in no distress.
--- NOTE | 2024-07-25 17:02 | NUR ---
DISCHARGE NOTE REVIEWED DISCHARGE INSTRUCTIONS WITH PATIENT, INCLUDING NEW PRESCRIBED MEDICATIONS AND IMPORTANCE OF MAKING A FOLLOW-UP APPOINTMENT WITH HER PCP. PATIENT AGREEABLE WITH DISCHARGE PLAN. 20 GAUGE IV REMOVED FROM R WRIST WITH CATHETER INTACT. 20 GAUGE IV REMOVED FROM R FOREARM WITH CATHETER INTACT. PRESSURE DRESSINGS APPLIED TO BOTH IV SITES, INSTRUCTIONS PROVIDED ON WHEN TO REMOVE DRESSINGS. PATIENT STATES HER UNDERSTANDING.
--- NOTE | 2024-07-25 17:09 | NUR ---
CURB WORKER DOCUMENTATION this rn agrees with ronnie griffiths, documentation
== END 2024-07-25 16:50 | disposition hospice, home (50) | DRG 291 ==
LOC: ER 23:37 → PCU 07-19 03:02
PROVIDERS: Emergency Medicine; Family Medicine; Internal Medicine; Internal Medicine Interventional Cardiology; ADMIT Internal Medicine
PROC: 5A09357 Assistance with Respiratory Ventilation, Less than 24 Consecutive Hours, Continuous Positive Airway Pressure (ICD-10-PCS; principal; 2024-07-19)
DX: I50.23 Acute on chronic systolic (congestive) heart failure (principal); J96.01 Acute respiratory failure with hypoxia; J96.02 Acute respiratory failure with hypercapnia; Z59.02 Unsheltered homelessness; Z68.42 Body mass index [BMI] 45.0-49.9, adult; L97.929 Non-pressure chronic ulcer of unspecified part of left lower leg with unspecified severity; L97.919 Non-pressure chronic ulcer of unspecified part of right lower leg with unspecified severity; I42.7 Cardiomyopathy due to drug and external agent; I42.0 Dilated cardiomyopathy; I07.1 Rheumatic tricuspid insufficiency; K76.1 Chronic passive congestion of liver; F41.9 Anxiety disorder, unspecified; J45.909 Unspecified asthma, uncomplicated; E66.01 Morbid (severe) obesity due to excess calories; I27.29 Other secondary pulmonary hypertension; F17.210 Nicotine dependence, cigarettes, uncomplicated; F15.11 Other stimulant abuse, in remission; I10 Essential (primary) hypertension; F10.11 Alcohol abuse, in remission; T43.655A Adverse effect of methamphetamines, initial encounter; I50.84 End stage heart failure; I95.9 Hypotension, unspecified; I70.249 Atherosclerosis of native arteries of left leg with ulceration of unspecified site; I70.239 Atherosclerosis of native arteries of right leg with ulceration of unspecified site; R79.1 Abnormal coagulation profile; I48.91 Unspecified atrial fibrillation; E87.6 Hypokalemia; I44.7 Left bundle-branch block, unspecified; Z88.8 Allergy status to other drugs, medicaments and biological substances; Z79.01 Long term (current) use of anticoagulants; Z86.718 Personal history of other venous thrombosis and embolism; Z86.711 Personal history of pulmonary embolism
CPT/HCPCS: 36415; 71045; 71260; 76705; 80053; 82140; 82803; 83735; 83880; 84484; 85025; 85379; 93005; 93010; 93925; 93970; 94640; 94660; 94664; 94761; 94762; 96374; 96375; 99285-25; A9270; C8929; J1160; J1885; J1940; J2310; J3010; J3480; J7050; Q9957; Q9967